=== PATIENT | male | born 1960 | race Caucasian/White ===

== ENCOUNTER → 2023-02-22 14:18 | Outpatient (BNVA) | payer OTHER, SELFPAY | PROVIDERS: PCP Student in an Organized Health Care Education/Training Program; Visit Provider Psychiatry & Neurology Neurology | DX: G43.709 Chronic migraine without aura, not intractable, without status migrainosus (principal) ==

== ENCOUNTER → 2023-03-03 14:02 | Outpatient (BNVA) | payer OTHER, SELFPAY | PROVIDERS: PCP Student in an Organized Health Care Education/Training Program; Visit Provider Nurse Practitioner Family | DX: G43.709 Chronic migraine without aura, not intractable, without status migrainosus (principal); G47.33 Obstructive sleep apnea (adult) (pediatric); Z99.89 Dependence on other enabling machines and devices ==

== ENCOUNTER 2023-03-20 12:01 | Outpatient (REF) | payer OTHER, SELFPAY ==
--- NOTE | ~2023-03-20 | MR_ITS ---
MRI OF THE BRAIN WITHOUT IV CONTRAST INDICATION: Headache. COMPARISON: None available. TECHNIQUE: Multiplanar multisequence MR imaging of the brain was obtained without IV contrast. FINDINGS: There is no hydrocephalus, extra-axial surface collection, or herniation. The major flow voids at the skull base are preserved. There is no acute infarct on diffusion-weighted imaging. There is no intracranial hemorrhage on the gradient recalled echo acquisition. The midline structures are normal. The cerebellar tonsils are normally positioned. The cerebellum and brainstem are normal. The craniocervical junction is normal. Osseous marrow signal intensity is homogenous. The visualized soft tissues are unremarkable. MR/MR head/brain wo con IMPRESSION: Unremarkable noncontrast MRI of the brain.
== END 2023-03-20 12:02 | disposition home or self-care (01) ==
LOC: HO.MRI 12:01
PROVIDERS: PCP Student in an Organized Health Care Education/Training Program; Visit Provider Nurse Practitioner Family
DX: R51.9 Headache, unspecified (principal)
CPT/HCPCS: 70551

== ENCOUNTER 2023-04-03 16:32 | Outpatient (REF) | payer OTHER, SELFPAY ==
--- NOTE | ~2023-04-03 | XR_ITS ---
EXAMINATION: XR CERVICAL SPINE CLINICAL INFORMATION: Pain COMPARISON: None available. TECHNIQUE: 7 views of the cervical spine, inclusive of flexion and extension and bilateral oblique views, were obtained. FINDINGS: Bone alignment is normal. No fracture or dislocation. Degenerative spondylosis and degenerative disc disease at C5-C6 and C6-C7. Mild degenerative spondylosis at C4-C5. No instability on flexion-extension views. Right neuroforaminal narrowing from bony osteophyte at C3-C4 C5-C6 and C6-C7. Left neuroforaminal narrowing from bony osteophyte from C3-C4 to C6-C7. Prevertebral soft tissues are normal. XR/XR cervical spine min 6V IMPRESSION: Degenerative changes.
== END 2023-04-03 16:33 | disposition home or self-care (01) ==
LOC: HO.XRAY 16:32
PROVIDERS: Visit Provider Nurse Practitioner Family
DX: M54.2 Cervicalgia (principal)
CPT/HCPCS: 72052

== ENCOUNTER 2023-05-01 15:26 | Emergency (ER) | payer OTHER, SELFPAY ==
[2023-05-01 15:34] VITALS: BP 117/98; PULSE 100; RESP 18; TEMP 36.7; O2SAT 97; BMI 26.6
--- NOTE | 2023-05-01 15:44 | ED.GENADULT ---
HPI - General Adult General Chief complaint: Dyspnea Stated complaint: sent from urgent care ?embolism ,sob Time Seen by Provider: 05/01/23 21:17 Source: patient Mode of arrival: ambulatory Limitations: no limitations History of Present Illness HPI narrative: Patient comes to the emergency room from urgent care. Patient states that he recently traveled back from [facility], complaining of cough, chest pain, shortness of breath. In urgent care he was urged to come to the emergency room to rule out pulmonary embolism. Patient denies fever chills . Also, patient states that he has been having a migraine headache for 60 days. Patient has a migraine specialist, has been seen multiple times at [facility], it is prescribed diazepam p.r.n. headaches. Patient requesting 1 dose for severe headache that got worse with the coughing. Related Data Home Medications Medication Instructions Recorded Confirmed metformin 500 mg tablet,extended 2,000 mg PO BID 02/22/23 03/03/23 release 24 hr sumatriptan succinate 100 mg tablet 100 mg PO migraine 02/22/23 03/03/23 Previous Rx's Medication Instructions Recorded magnesium oxide 400 mg PO BEDTIME #30 caps 02/22/23 riboflavin (vitamin B2) 400 mg 400 mg PO QAM #30 tabs 02/22/23 tablet prednisone 20 mg tablet 60 mg PO DAILY 5 days #15 tabs 03/10/23 sumatriptan succinate 3 mg/0.5 mL 3 mg (0.5 mL) subcut Q1H PRN 03/22/23 subcutaneous pen injector migraine headache 28 days #5 mL (Zembrace Symtouch) galcanezumab-gnlm 120 mg/mL 120 mg subcut ONCE 30 days #1 mL 03/29/23 subcutaneous pen injector (Emgality Pen) sumatriptan succinate 6 mg/0.5 mL 6 mg (0.5 mL) subcut ONCE PRN 03/29/23 subcutaneous pen injector migraine headache 30 days #6 mL onabotulinumtoxinA 200 unit 200 unit IM ONCE 12 weeks #1 ea 04/07/23 solution for injection (Botox) diazepam 5 mg tablet 5 mg PO BID PRN anxiety 30 days 04/10/23 #60 tabs metoclopramide HCl 5 mg tablet 5 mg PO TID 15 days #45 tabs 04/10/23 (Reglan) topiramate 50 mg tablet 100 mg PO BID 30 days #120 tabs 04/10/23 benzonatate 100 mg capsule 100 mg PO TID PRN cough #20 caps 05/02/23 codeine 6.3 mg-guaifenesin 100 10 ml PO Q6H PRN cough #473 mL 05/02/23 mg/5 mL oral liquid Allergies Allergy/AdvReac Type Severity Reaction Status Date / Time No Known Allergies Allergy Verified 03/03/23 14:13 Review of Systems Review of Systems: Constitutional : No Weight loss, No Fever, No Chills, No Night Sweats, No Fatigue, No Malaise ENT/Mouth : No Hearing loss, No Ear Pain, No Nasal Congestion, No Sinus Pain, No Hoarseness, No sore throat, No Rhinorrhea, No Swallowing Difficulty Eyes: No Eye Pain, No Swelling, No Redness, No Foreign Body, No Discharge, No Vision Changes Cardiovascular : No Chest Pain, No SOB, No Dyspnea on Exertion, No Orthopnea, No Edema, No Palpitations Respiratory : Min of cough, no sputum production, no wheezing, complaining of shortness of breath Gastrointestinal : No Nausea, No Vomiting, No Diarrhea, No Constipation, No abdominal Pain, No Hematochezia, No Melena Genitourinary : no irregular bleeding, No Dysuria, No Urinary Frequency, No Hematuria, No Urinary Incontinence, No Urgency, No Flank Pain, No Urinary Flow Changes, No Hesitancy Musculoskeletal : No joint pain, No Myalgias, No Joint Swelling Skin : No Skin Lesions, No rash Neuro : No Weakness, No Numbness, No Paresthesias, No Loss of Consciousness, No Dizziness, complaining of chronic migraine Headache Psych : No Anxiety/Panic, No Depression, No SI/HI/AH/VH, No Social Issues, Heme/Lymph: No Bruising, No Bleeding,No Lymphadenopathy Endocrine : No Polyuria, No Polydipsia, No Temperature Intolerance [facility] Past Medical History Medical History Chronic migraine without aura Diabetes Headache Irritable bowel syndrome MICHEAL on CPAP Family History Family History Father Dementia Diabetes History of heart attack Mother Stomach cancer Social History Social History Alcohol intake: current Alcohol intake frequency: does not drink Patient Tobacco Use Status: Former Tobacco user Smoked in Last 30 Days: No Use of substances other than those prescribed or required for medical reasons: No Advance Directives: No Advance Directives Information Provided: Yes Physical Exam ED Vital Signs: Vital Signs - 24 hr 05/01/23 15:34 05/01/23 20:38 05/01/23 22:19 Temperature 98.0 F 99.4 F 98.8 F Pulse Rate 100 104 H 107 H Respiratory Rate 18 18 Blood Pressure 117/98 H 132/96 H 130/94 H Pulse Oximetry 97 96 98 Oxygen Delivery Method Room Air Room Air Room Air 05/02/23 00:02 Temperature 99.4 F Pulse Rate 104 H Respiratory Rate 18 Blood Pressure 126/84 Pulse Oximetry 98 Oxygen Delivery Method Room Air BMI result Body Mass Index 26.6 Const Other: Appearance: Alert. Oriented X3. No acute distress. Looks uncomfortable Eyes: Pupils equal, round and reactive to light. ENT: Pharynx normal. Neck: Normal inspection. Neck supple. No lymph nodes noted. No crepitus CVS: Normal heart rate and rhythm. Pulses normal. Normal S1 and S2 Respiratory: No respiratory distress. Breath sounds normal. No Wheezing. No rales Abdomen: Soft and nontender. No rigidity. No distention. Skin: Skin warm and dry. Normal skin color. Normal skin turgor. Extremities: No lower extremity edema. No Lacerations. No Rash Neuro: Oriented X 3. No motor deficit. No sensory deficit. Moving all extremities. No slurred speech. CN 2 through 12 grossly intact Psych: calm, cooperative, normal affect Course Course Course Narrative: RME: 62 yold male presents to the Ed for COughing green phelgum since traveling from [facility]. patient states no pleurisy, coughing up blood, leg swelling, or calf pain. Sent from [facility] to rule out PE. labs, Ches xray, D dimer ordered Medications Administered Discontinued Medications Generic Name Dose Route Start Last Admin Trade Name Freq PRN Reason Stop Dose Admin Benzonatate 100 mg 05/02/23 00:42 05/02/23 00:47 Benzonatate 100 Mg Capsule PO 05/02/23 00:43 100 mg ONCE ONE Administration Diazepam 5 mg 05/01/23 21:26 05/01/23 22:16 Diazepam 10 Mg/2 Ml Cartridge IVPUSH 05/01/23 21:27 5 mg STAT STA Administration Iohexol 65 ml 05/02/23 00:11 05/02/23 00:12 Iohexol 350 Mg/Ml 100 Ml Infus..Btl IV 05/02/23 00:12 65 ml ONCE ONE Administration Medical Decision Making Medical Decision Making [facility] Narrative: -my interpretation of laboratory work, patient's white blood cell count is elevated, D-dimer is positive. Admission has been considered -my interpretation of chest x-ray: No infiltrates -patient morning for a CT scan to rule out pulmonary embolism. -patient was given a dose of diazepam 5 mg for headache -interpretation of CTA of the lungs: No obvious DVT, no pneumonia -patient was given Tessalon Perles. -discussed with the patient that the coughing may last up to 8 weeks Differential Diagnosis Differential Diagnoses: The differential diagnosis associated with the presentation includes (Pulmonary embolism, pneumonia, viral bronchitis, bacterial bronchitis) Admission/Observation Consideration of admission/observation: Escalation of care including admission/observation considered Lab Data [facility] Lab Attestation statement: I reviewed the patient's lab results. 05/01/23 16:15 05/01/23 16:15 Labs: Lab Results 05/01/23 05/01/23 05/01/23 Range/Units 16:15 16:15 16:15 WBC 11.0 H (4.8-10.8) X10*3/uL RBC 4.59 L (4.60-5.80) X10*6/uL Hgb 13.0 L (14.0-18.0) g/dl Hct 38.6 L (42.0-52.0) % MCV 84.1 (80.0-98.0) fL MCH 28.3 (27.0-33.0) pg MCHC 33.7 (31.0-36.0) g/dl RDW 14.1 (11.0-16.0) % Plt Count 289 (160-400) X10*3/uL MPV 9.8 (9.4-12.4) fL Immature Gran % (Auto) 0.7 H (0.0-0.4) % Neut % (Auto) 68.0 (45-73) % Lymph % (Auto) 22.3 (20-40) % [place] % (Auto) 6.2 (2-11) % Eos % (Auto) 2.4 (0-4) % Baso % (Auto) 0.4 (0-2) % Lymph # (Auto) 2.5 (1.2-4.9) X10*3/uL [place] # (Auto) 0.7 (0.1-1.2) X10*3/uL Eos # (Auto) 0.3 (0.0-0.4) X10*3/uL Baso # (Auto) 0.0 (0.0-0.2) X10*3/uL Abs Immat Gran (auto) 0.08 H (0.00-0.03) X10*3/uL Absolute Neuts (auto) 7.5 (2.0-8.3) x10*3/uL Absolute Nucleated RBC 0.000 (0.0-0.012) X10*3/uL Nucleated RBC % (auto) 0.0 (0.0-0.2) /100WBC PT 11.9 (10.0-13.1) SEC INR 1.0 (0.9-1.1) APTT 36.1 (26.0-36.4) SEC D-Dimer High Sensitivty 157 NG/ML Sodium 142 (135-145) mmol/L Potassium 3.7 (3.3-5.1) mmol/L Chloride 113 H (96-108) mmol/L Carbon Dioxide 20 L (22-29) mmol/L Anion Gap 13 (12-20) BUN 19 H (9-16) mg/dL Creatinine 1.15 (0.5-1.4) mg/dL Estim Creat Clear Calc 67.4 Estimated GFR > 60 Random Glucose 133 H (60-115) mg/dL Calcium 9.8 (8.4-10.2) mg/dL Total Bilirubin 0.5 (0.0-1.0) mg/dL AST 21 (5-37) U/L ALT 27 (0-40) U/L Alkaline Phosphatase 58 (39-117) U/L Troponin I High Sens (<3.5-35.0) ng/L B-Natriuretic Peptide (<100) pg/mL Total Protein 7.4 (6.5-8.0) g/dL Albumin 4.2 (3.5-5.0) g/dL COVID-19 (VALERIO) (Negative) COVID-19 Clin Com Influenza Type A (RINA) (Negative) Influenza Type B (RINA) (Negative) Influenza A & B Note 05/01/23 05/01/23 05/01/23 Range/Units 16:15 16:15 16:15 WBC (4.8-10.8) X10*3/uL RBC (4.60-5.80) X10*6/uL Hgb (14.0-18.0) g/dl Hct (42.0-52.0) % MCV (80.0-98.0) fL MCH (27.0-33.0) pg MCHC (31.0-36.0) g/dl RDW (11.0-16.0) % Plt Count (160-400) X10*3/uL MPV (9.4-12.4) fL Immature Gran % (Auto) (0.0-0.4) % Neut % (Auto) (45-73) % Lymph % (Auto) (20-40) % Dimmit % (Auto) (2-11) % Eos % (Auto) (0-4) % Baso % (Auto) (0-2) % Lymph # (Auto) (1.2-4.9) X10*3/uL Dimmit # (Auto) (0.1-1.2) X10*3/uL Eos # (Auto) (0.0-0.4) X10*3/uL Baso # (Auto) (0.0-0.2) X10*3/uL Abs Immat Gran (auto) (0.00-0.03) X10*3/uL Absolute Neuts (auto) (2.0-8.3) x10*3/uL Absolute Nucleated RBC (0.0-0.012) X10*3/uL Nucleated RBC % (auto) (0.0-0.2) /100WBC PT (10.0-13.1) SEC INR (0.9-1.1) APTT (26.0-36.4) SEC D-Dimer High Sensitivty NG/ML Sodium (135-145) mmol/L Potassium (3.3-5.1) mmol/L Chloride (96-108) mmol/L Carbon Dioxide (22-29) mmol/L Anion Gap (12-20) BUN (9-16) mg/dL Creatinine (0.5-1.4) mg/dL Estim Creat Clear Calc Estimated GFR Random Glucose (60-115) mg/dL Calcium (8.4-10.2) mg/dL Total Bilirubin (0.0-1.0) mg/dL AST (5-37) U/L ALT (0-40) U/L Alkaline Phosphatase (39-117) U/L Troponin I High Sens < 2.7 (<3.5-35.0) ng/L B-Natriuretic Peptide < 10 (<100) pg/mL Total Protein (6.5-8.0) g/dL Albumin (3.5-5.0) g/dL COVID-19 (VALERIO) (Negative) COVID-19 Clin Com Influenza Type A (RINA) Negative (Negative) Influenza Type B (RINA) Negative (Negative) Influenza A & B Note See Note 05/01/23 Range/Units 16:15 WBC (4.8-10.8) X10*3/uL RBC (4.60-5.80) X10*6/uL Hgb (14.0-18.0) g/dl Hct (42.0-52.0) % MCV (80.0-98.0) fL MCH (27.0-33.0) pg MCHC (31.0-36.0) g/dl RDW (11.0-16.0) % Plt Count (160-400) X10*3/uL MPV (9.4-12.4) fL Immature Gran % (Auto) (0.0-0.4) % Neut % (Auto) (45-73) % Lymph % (Auto) (20-40) % Dimmit % (Auto) (2-11) % Eos % (Auto) (0-4) % Baso % (Auto) (0-2) % Lymph # (Auto) (1.2-4.9) X10*3/uL Dimmit # (Auto) (0.1-1.2) X10*3/uL Eos # (Auto) (0.0-0.4) X10*3/uL Baso # (Auto) (0.0-0.2) X10*3/uL Abs Immat Gran (auto) (0.00-0.03) X10*3/uL Absolute Neuts (auto) (2.0-8.3) x10*3/uL Absolute Nucleated RBC (0.0-0.012) X10*3/uL Nucleated RBC % (auto) (0.0-0.2) /100WBC PT (10.0-13.1) SEC INR (0.9-1.1) APTT (26.0-36.4) SEC D-Dimer High Sensitivty NG/ML Sodium (135-145) mmol/L Potassium (3.3-5.1) mmol/L Chloride (96-108) mmol/L Carbon Dioxide (22-29) mmol/L Anion Gap (12-20) BUN (9-16) mg/dL Creatinine (0.5-1.4) mg/dL Estim Creat Clear Calc Estimated GFR Random Glucose (60-115) mg/dL Calcium (8.4-10.2) mg/dL Total Bilirubin (0.0-1.0) mg/dL AST (5-37) U/L ALT (0-40) U/L Alkaline Phosphatase (39-117) U/L Troponin I High Sens (<3.5-35.0) ng/L B-Natriuretic Peptide (<100) pg/mL Total Protein (6.5-8.0) g/dL Albumin (3.5-5.0) g/dL COVID-19 (VALERIO) Negative (Negative) COVID-19 Clin Com See Note Influenza Type A (RINA) (Negative) Influenza Type B (RINA) (Negative) Influenza A & B Note Radiology Impression Discussion of test interpretation with radiology: I have reviewed the radiologist's reading. Radiologist Impression: FINDINGS: No significant abnormality is noted involving the heart, lungs, mediastinum, bony thorax or soft tissues. XR/XR chest 1V IMPRESSION: No acute cardiopulmonary process FINDINGS: QUALITY OF STUDY/CONTRAST BOLUS: Suboptimal. The pulmonary arteries are the least well opacified vascular structure with better opacification of the aorta and pulmonary veins. In addition, there is marked motion artifact degrading detail. PULMONARY ARTERIES: No central or large segmental pulmonary emboli.? THORACIC AORTA: No aneurysm. LUNG: No focal consolidation, nodules or masses. PLEURA: No pleural effusion or pneumothorax. MEDIASTINUM: Normal heart size.? No pericardial effusion.? No hilar or mediastinal lymphadenopathy.? No evidence of septal bowing or right heart strain. CORONARY ARTERY CALCIFICATION: None visualized on this study. CHEST WALL/AXILLA: No axillary or internal mammary lymphadenopathy. OSSEOUS STRUCTURES: No acute or suspicious osseous abnormality.? UPPER ABDOMEN: The liver and spleen are probably enlarged. Hepatic steatosis is present.? No reflux of contrast into the hepatic veins to suggest elevated right heart pressures. CT/CT angio chest PE protocol IMPRESSION: Limited study but no large pulmonary emboli are seen. Probable enlarged fatty liver and splenomegaly. ? VTE: Limited but negative . Tests considered The following testing was considered but not selected: I considered doing a CT scan of the head given that the patient has had a migraine for 60 days. However, on 03/20/2023, patient already had this current migraine, an MRI of the brain was done which was unremarkable. Chronic Conditions Patient?s care impacted by: Other (Migraine) Discharge Plan Discharge Clinical Impression: Bronchitis Patient Disposition: Home, Self-Care Instructions: Acute Bronchitis (ED) Additional Instructions: Please follow-up with your primary care physician tomorrow. If you have any worsening or new symptoms, please return to the emergency room or call 911 Prescriptions: New codeine-guaifenesin 6.3-100 mg/5 mL liquid 10 ml PO Q6H PRN (Reason: cough) Qty: 473 0RF benzonatate 100 mg capsule 100 mg PO TID PRN (Reason: cough) Qty: 20 0RF No Action prednisone 20 mg tablet 60 mg PO DAILY 5 Days Qty: 15 0RF Rx Instructions: take in am w/ food Zembrace Symtouch 3 mg/0.5 mL pen injector 3 mg subcut Q1H PRN (Reason: migraine headache) 28 Days Qty: 5 3RF Rx Instructions: may repeat in an hour. do not exceed 4 doses per 24 hrs. Emgality Pen 120 mg/mL pen injector 120 mg subcut ONCE 30 Days Qty: 1 6RF sumatriptan succinate 6 mg/0.5 mL pen injector 6 mg subcut ONCE PRN (Reason: migraine headache) 30 Days Qty: 6 3RF Rx Instructions: MR in 1 hr (max 12mg/24 hr), Botox 200 unit recon soln 200 unit IM ONCE 84 Days Qty: 1 3RF Rx Instructions: inject 155 units IM across forehead, scalp, and neck diazepam 5 mg tablet 5 mg PO BID PRN (Reason: anxiety) 30 Days Qty: 60 0RF topiramate 50 mg tablet 100 mg PO BID 30 Days Qty: 120 3RF metoclopramide HCl [Reglan] 5 mg tablet 5 mg PO TID 15 Days Qty: 45 0RF Rx Instructions: Can take with Benadryl 25 mg Take for nausea, vomiting or migraine sumatriptan succinate 100 mg tablet 100 mg PO metformin 500 mg tablet extended release 24 hr 2,000 mg PO BID magnesium oxide 400 mg magnesium capsule 400 mg PO BEDTIME Qty: 30 3RF riboflavin (vitamin B2) 400 mg tablet 400 mg PO QAM Qty: 30 6RF Interventions: ED Discharge Assessment Last Done: 05/02/23 01:08 Discharge Date/Time: 05/02/23 01:09
[2023-05-01 16:44] LABS: Alanine Aminotransferase 27 U/L (0-40); Albumin Level 4.2 g/dL (3.5-5.0); Alkaline Phosphatase 58 U/L (39-117); Anion Gap 13 (12-20); Aspartate Amino Transferase 21 U/L (5-37); Bilirubin Total 0.5 mg/dL (0.0-1.0); Blood Urea Nitrogen 19 mg/dL (9-16); Calcium 9.8 mg/dL (8.4-10.2); Carbon Dioxide 20 mmol/L (22-29); Chloride 113 mmol/L (96-108); Creatinine Clr Calc Pharmacy 67.4; Estimated Glomerular Filt Rate > 60; Glucose Random 133 mg/dL (60-115); Potassium 3.7 mmol/L (3.3-5.1); Sodium 142 mmol/L (135-145); Total Protein 7.4 g/dL (6.5-8.0)
[2023-05-01 20:38] VITALS: BP 132/96; PULSE 104; TEMP 37.4; O2SAT 96
--- NOTE | 2023-05-01 20:45 | PC.NURSE ---
Pt aox4 sitting up right at the bedside. Breaths are even regular and unlabored. Cough present. Pt reports cough with green sputum and migraine headache, 08/08. VSS. Pending physician my. Pt aware of plan of care.
[2023-05-01 22:19] VITALS: BP 130/94; PULSE 107; RESP 18; TEMP 37.1; O2SAT 98
[2023-05-02 00:02] VITALS: BP 126/84; PULSE 104; RESP 18; TEMP 37.4; O2SAT 98
--- NOTE | 2023-05-02 00:03 | MHC.EDTECH ---
This tech assumed care of pt at 2300, vitals taken and patient is resting awaiting a CT scan at this time. Call redding within reach
== END 2023-05-02 01:09 | disposition home or self-care (01) ==
PROVIDERS: Physician Assistant; Emergency Provider Emergency Medicine
DX: J40 Bronchitis, not specified as acute or chronic (principal); R06.02 Shortness of breath; Z20.822 Contact with and (suspected) exposure to COVID-19; E11.9 Type 2 diabetes mellitus without complications; Z87.891 Personal history of nicotine dependence; Z79.899 Other long term (current) drug therapy; Z79.84 Long term (current) use of oral hypoglycemic drugs
CPT/HCPCS: 36415; 71045; 71275; 80053; 83880; 84484; 85025; 85379; 85610; 85730; 87502; 87635; 96374; 99284; J3360; Q9967

== ENCOUNTER → 2023-05-05 15:03 | Outpatient (BNVA) | payer OTHER, SELFPAY | PROVIDERS: Visit Provider Psychiatry & Neurology Neurology | DX: G43.709 Chronic migraine without aura, not intractable, without status migrainosus (principal); F41.9 Anxiety disorder, unspecified | CPT/HCPCS: 64615; J0585 ==

== ENCOUNTER 2023-05-29 14:26 | Outpatient (AMB) | payer OTHER, SELFPAY ==
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
[2023-05-29 14:31] VITALS: BP 123/82; PULSE 99; O2SAT 100; BMI 26.2
== END 2023-05-29 15:24 | disposition home or self-care (01) ==
PROVIDERS: Visit Provider Internal Medicine
DX: G43.709 Chronic migraine without aura, not intractable, without status migrainosus (principal)
CPT/HCPCS: 64405; 64450; 99204

== ENCOUNTER → 2023-05-29 14:26 | Outpatient (BNVA) | payer OTHER, SELFPAY | PROVIDERS: Visit Provider Internal Medicine | DX: G43.719 Chronic migraine without aura, intractable, without status migrainosus (principal); E11.9 Type 2 diabetes mellitus without complications; G47.33 Obstructive sleep apnea (adult) (pediatric); Z99.89 Dependence on other enabling machines and devices | CPT/HCPCS: 64405; 64450; J2795 ==

== ENCOUNTER 2023-06-23 07:22 | Outpatient (REF) | payer OTHER, SELFPAY ==
--- NOTE | ~2023-06-23 | MR_ITS ---
EXAMINATION: MR ANGIOGRAPHY BRAIN WITHOUT CONTRAST CLINICAL INFORMATION: Headache. COMPARISON: Brain MRI 03/20/2023. TECHNIQUE: A three-dimensional [id number]-[id number] MR angiogram of the head was performed without contrast. 3D images were processed on an independent workstation under concurrent supervision. Arterial stenoses are measured in accordance with NASCET criteria or similar method if applicable. FINDINGS: Intracranial internal carotid arteries are normal. The intradural vertebral artery segments and basilar artery are normal. Anterior, middle, and posterior cerebral complexes are normal. No intracranial large vessel occlusion. No identifiable aneurysm or high flow vascular lesion. MR/MR angio head wo con IMPRESSION: Normal MR angiogram of the head.
== END 2023-06-23 07:23 | disposition home or self-care (01) ==
LOC: HO.MRI 07:22
PROVIDERS: Visit Provider Nurse Practitioner Family
DX: R51.9 Headache, unspecified (principal); E11.9 Type 2 diabetes mellitus without complications
CPT/HCPCS: 70544

== ENCOUNTER 2023-08-09 14:58 | Outpatient (AMB) | payer OTHER, SELFPAY ==
--- NOTE | 2023-08-09 15:10 | A.OFFVIS_ITS ---
Intake Intake Visit Reasons: BOTOX-lvm Intake Note: Pt presents to office for Botox injection. I asked pt if he was still interested in using the Emgality as we would need to submit a PA so there is no lapse in his current treatment and he replied I'll get back to you on that. I have another doctor working on getting that approved, if they don't do it, I'll let you guys know so you can submit the request through here . Allergies No Known Allergies Allergy (Verified 08/09/23 15:11) Medication List - Last Reconciled 08/09/23 by Esperanza Ruiz MD [id number]-nrar 50-325-40 mg 1 tab PO Q4H PRN citalopram 10 mg PO DAILY galcanezumab-gnlm (Emgality Pen) 120 mg subcut ONCE 30 days magnesium oxide 400 mg PO BEDTIME 30 days metformin ER 2,000 mg PO BID metoclopramide HCl (Reglan) 5 mg PO TID 15 days onabotulinumtoxinA (Botox) 200 units IM ONCE 12 weeks propranolol ER 60 mg PO DAILY riboflavin (vitamin B2) 400 mg PO QAM rizatriptan 5 - 10 mg (0.5 - 1 x 10 mg) PO Q2H PRN 14 days sumatriptan succinate 100 mg PO sumatriptan succinate (Zembrace Symtouch) 3 mg (0.5 mL) subcut Q1H PRN 28 days sumatriptan succinate 6 mg (0.5 mL) subcut ONCE PRN 30 days HPI HPI Comments History of Present Illness Details ? 62y/o male comes for treatment of migraines with botox.He reports decrease in intensity of headaches.He was seen at the [facility] at [place] and [facility] and is following up with them . He wanst to continue botox here. ??? Most frequent reported adverse reactions following injection of botox for chronic migraine include neck pain (9%), headache(5%), eyelid ptosis(4%), migraine(4%), muscular weakness(4%), musculuskeletal stiffness(4%), bronchitis(3%), injection site pain (3%), musculoskeletal pain(3%), myalgia(3%), facial paresis(2%), HTN(2%) and muscle spasms(2%) were discussed in detail. ??? Botulinum toxin typeA 200units Lot no [id number] expiration Nov 2025 was diluted with 4 cc of normal saline . ??? Muscles injected- ??? Frontalis 4 sites ??? Procerus 1 site ??? Cashier Assistant- 2 sites ??? Temporalis- 8 sites ??? Occipitalis- 6 sites ??? Cervical paraspinals- 4 sites ??? Trapezius- 6 sites- 10 units each ??? 5 units each in 31 site ??? Total use- 185units ??? Discarded-15units [facility] Medical History Anxiety Irritable bowel syndrome Chronic migraine without aura MICHEAL on CPAP Headache Diabetes Family History Father Dementia Diabetes History of heart attack Mother Stomach cancer Social History Alcohol intake: current Alcohol intake frequency: does not drink Patient Tobacco Use Status: Former Tobacco user Physical Exam Const General: cooperative and no acute distress Orientation/consciousness: patient oriented x3 HEENT Head: Yes normocephalic Resp Effort & Inspection: normal respiratory effort and able to speak in complete sentences Neuro Other: photophobic General: patient oriented x3, gait normal and CN's II-XI intact bilaterally Cognition (Neuro): normal cognition Motor exam (neuro): 5/5 motor strength present throughout Psych Appearance: grossly normal Mental Status: mental status grossly normal Speech and movement: Normal speech and movement present Affect: Anxious affect present and Depressed mood present Attitude: cooperative Thought process: Normal thought process present Office Procedures Botulinum toxin Injection 80228 - Migraine Procedure code (CPT) selection complete Office Meds onabotulinumtoxinA 200 unit solution for injection Performing Provider: Esperanza Ruiz MD [place] [facility] [place] [facility] Administered by: Esperanza Ruiz MD on 08/09/23 15:39 Dose Route Admin Location Dispensed Lot Number Expiration Date [facility] [place] Adult Protective Caseworker 185 unit subcut 200 units [id number] 11/30/25 8899-5001-33 ALLERGAN/BOTOX Comments: see HPI Assessment & Plan Assessment & Plan (1) Chronic migraine without aura: Code(s): G43.709 - Chronic migraine without aura, not intractable, without status migrainosus (2) Anxiety: Code(s): F41.9 - Anxiety disorder, unspecified Plan Patient tolerated the procedure well He will call with any side effects Orders: Orders AMB Botulinum toxin Injection Today G43.709 - Chronic migraine without aura, not intractable, without status migrainosus Coding Level of Care Code Est Pt Level 1 (59667) Diagnoses Chronic migraine without aura G43.709 Anxiety F41.9 CPT Codes Botox Injection - Botox 3: 17175 - Migraine ([id number])
== END 2023-08-09 15:34 | disposition home or self-care (01) ==
PROVIDERS: Visit Provider Psychiatry & Neurology Neurology
DX: G43.709 Chronic migraine without aura, not intractable, without status migrainosus (principal); F41.9 Anxiety disorder, unspecified
CPT/HCPCS: 64615

== ENCOUNTER → 2023-08-09 14:58 | Outpatient (BNVA) | payer OTHER, SELFPAY | PROVIDERS: Visit Provider Psychiatry & Neurology Neurology | DX: G43.709 Chronic migraine without aura, not intractable, without status migrainosus (principal); F41.9 Anxiety disorder, unspecified | CPT/HCPCS: 64615; 99211; J0585 ==

== ENCOUNTER 2023-11-13 07:51 | Outpatient (AMB) | payer BC, SELFPAY ==
--- NOTE | 2023-11-13 08:13 | MHC.OFFVIS ---
Intake Vital Signs 11/13/23 08:16 Height 5 ft 9 in Weight 186 lb 8 oz BMI 27.5 BP 110/80 Blood Pressure Location Lt brachial Position Sitting Respiration 16 Pulse 77 Pulse Source Pulse Oximeter Pulse Oximetry (%) 98 Oxygen Delivery Method Room Air Intake Visit Reasons: Botox - Confirmed Intake Note: Pt presents to the office for Botox injections Nuclear Supervising Operator Required: No Allergies No Known Allergies Allergy (Verified 11/13/23 08:14) Medication List - Last Reconciled 11/13/23 by Esperanza Ruiz MD [id number]-kqgmhyxkyzhjv-rvdp 50-325-40 mg 1 tab PO Q4H PRN citalopram 10 mg PO DAILY magnesium oxide 400 mg PO BEDTIME 30 days metformin ER 2,000 mg PO BID metoclopramide HCl (Reglan) 5 mg PO TID 15 days onabotulinumtoxinA (Botox) 200 units IM ONCE 12 weeks propranolol ER 60 mg PO DAILY riboflavin (vitamin B2) 400 mg PO QAM rizatriptan 5 - 10 mg (0.5 - 1 x 10 mg) PO Q2H PRN 14 days sumatriptan succinate 100 mg PO sumatriptan succinate 6 mg (0.5 mL) subcut ONCE PRN 30 days HPI HPI Comments History of Present Illness Details ? 63y/o male comes for treatment of migraines with botox.He reports decrease in intensity of headaches.He was seen at the [facility] at [facility] and [facility] and is following up with them . He wanst to continue botox here. How many migraine days prior to botox 30 How long do the migraines last 1-2 days Intensity of migraine 08/08 ER visits related to migraine multiple Effectiveness of botox from last two treatment(s) How many migraine days since receiving treatment:25-30 Change? in intensity of migraine?decreased Change in frequency of migraine?same Change in use of acute medication for migraine?decreased Change in quality of life?mildly improved ER visits related to migraine?none Have at least three months elapsed since last treatment (Last botox date - frequency of injections)08/09/23 ??? Most frequent reported adverse reactions following injection of botox for chronic migraine include neck pain (9%), headache(5%), eyelid ptosis(4%), migraine(4%), muscular weakness(4%), musculuskeletal stiffness(4%), bronchitis(3%), injection site pain (3%), musculoskeletal pain(3%), myalgia(3%), facial paresis(2%), HTN(2%) and muscle spasms(2%) were discussed in detail. ??? Botulinum toxin typeA 200units Lot no [id number] expiration February 2026 was diluted with 4 cc of normal saline . ??? Muscles injected- ??? Frontalis 4 sites ??? Procerus 1 site ??? Security System Installer- 2 sites ??? Temporalis- 8 sites ??? Occipitalis- 6 sites ??? Cervical paraspinals- 4 sites ??? Trapezius- 6 sites- 10 units each ??? 5 units each in 31 site ??? Total use- 185units ??? Discarded-15units [facility] Medical History Anxiety Irritable bowel syndrome Chronic migraine without aura MICHEAL on CPAP Headache Diabetes Family History Father Dementia Diabetes History of heart attack Mother Stomach cancer Social History Alcohol intake: current Alcohol intake frequency: does not drink Patient Tobacco Use Status: Former Tobacco user Physical Exam Vital Signs: Last Vital Signs Pulse 77 11/13/23 08:16 Resp 16 11/13/23 08:16 BP 110/80 11/13/23 08:16 Pulse Ox 98 11/13/23 08:16 Oxygen Delivery Method Room Air 11/13/23 08:16 BMI result Body Mass Index 27.5 Const General: cooperative and no acute distress Orientation/consciousness: patient oriented x3 HEENT Head: Yes normocephalic Resp Effort & Inspection: normal respiratory effort and able to speak in complete sentences Neuro Other: photophobic General: patient oriented x3, gait normal and CN's II-XI intact bilaterally Cognition (Neuro): normal cognition Motor exam (neuro): 5/5 motor strength present throughout Psych Appearance: grossly normal Mental Status: mental status grossly normal Speech and movement: Normal speech and movement present Affect: Anxious affect present and Depressed mood present Attitude: cooperative Thought process: Normal thought process present Office Procedures Botulinum toxin Injection 39139 - Migraine Procedure code (CPT) selection complete Office Meds onabotulinumtoxinA 200 unit solution for injection Performing Provider: Esperanza Ruiz MD [place] [facility] [place] [facility] Administered by: Esperanza Ruiz MD on 11/13/23 10:18 Dose Route Admin Location Dispensed Lot Number Expiration Date [facility] Impregnator Electrolytic Capacitors 185 unit IM 200 units [id number] 02/27/26 7436-0456-05 ALLERGAN/BOTOX Comments: see hpi Assessment & Plan Assessment & Plan (1) Chronic migraine without aura: Code(s): G43.709 - Chronic migraine without aura, not intractable, without status migrainosus (2) Anxiety: Code(s): F41.9 - Anxiety disorder, unspecified Plan Patient tolerated the procedure well He will call with any side effects Orders: Orders AMB Botulinum toxin Injection Today G43.709 - Chronic migraine without aura, not intractable, without status migrainosus Coding Level of Care Code Est Pt Level 1 (06159) Diagnoses Chronic migraine without aura G43.709 Anxiety F41.9 CPT Codes Botox Injection - Botox 3: 74741 - Migraine ([id number])
[2023-11-13 08:16] VITALS: BP 110/80; PULSE 77; RESP 16; O2SAT 98; BMI 27.5
== END 2023-11-13 08:37 | disposition home or self-care (01) ==
PROVIDERS: Visit Provider Psychiatry & Neurology Neurology
DX: G43.709 Chronic migraine without aura, not intractable, without status migrainosus (principal)
CPT/HCPCS: 64615

== ENCOUNTER → 2023-11-13 07:51 | Outpatient (BNVA) | payer BC, SELFPAY | PROVIDERS: Visit Provider Psychiatry & Neurology Neurology | DX: G43.709 Chronic migraine without aura, not intractable, without status migrainosus (principal); F41.9 Anxiety disorder, unspecified | CPT/HCPCS: 64615; 99211; J0585 ==

== ENCOUNTER 2024-05-29 16:22 | Outpatient (REF) | payer BC, SELFPAY ==
--- NOTE | ~2024-05-29 | MR_ITS ---
EXAMINATION: MR CERVICAL SPINE WITHOUT CONTRAST CLINICAL INFORMATION: New daily persistent headache COMPARISON: None TECHNIQUE: MRI of the cervical spine was obtained using routine sequences without contrast. FINDINGS: The craniocervical junction is intact. The cervical lordosis is preserved. Trace anterolisthesis at C3-C4 and C4-C5. Vertebral body heights are normal without acute compression fracture. No suspicious osseous lesion. Diffuse disc desiccation with mild C5-C6 and C6-C7 disc height loss and there is mild type II Modic endplate change. There are multilevel degenerative changes with level by level detail as follows: C2-C3: Fusion across the hypertrophic right greater than left facet arthrosis. No spinal canal or neural foraminal stenosis. C3-C4: Small central disc protrusion with bilateral uncovertebral joint hypertrophy, hypertrophic right and mild left facet arthrosis. No spinal canal stenosis. Moderate right without left neural foraminal stenosis. C4-C5: Bilateral uncovertebral spurring and left greater than right facet arthrosis. No spinal canal stenosis. Moderate to severe left and mild right neural foraminal stenosis. C5-C6: Disc osteophyte complex with bilateral uncovertebral joint hypertrophy and mild facet arthrosis. No spinal canal stenosis. Moderate to severe left and oars-lv-qlgutsig right neural foraminal stenosis. C6-C7: Disc osteophyte complex with bilateral uncovertebral joint hypertrophy and mild facet arthrosis. Mild spinal canal and moderate bilateral neural foraminal stenosis. C7-T1: Shallow left central disc protrusion. No spinal canal or neural foraminal stenosis. The cervical spinal cord is normal in signal and morphology. No epidural fluid collection, mass, or hematoma. No significant abnormalities of the paraspinal musculature. The flow voids of the major cervical vessels are maintained. The visualized intracranial structures are normal. No demonstrated abnormalities in the visualized neck. MR/MR cervical spine wo con IMPRESSION: Multilevel cervical spondylosis as described above with mild spinal canal stenosis at C6-C7. No cord compression or cord signal abnormality. Multilevel neural foraminal stenosis, worst and moderate to severe on the left at C4-C5 and C5-C6. Electronically signed by: Teresa Vasquez MD 06/20/2024 04:01 PM EDT
== END 2024-05-29 16:23 | disposition home or self-care (01) ==
LOC: HO.MRI 16:22
PROVIDERS: Visit Provider Internal Medicine
DX: G44.52 New daily persistent headache (NDPH) (principal); G43.719 Chronic migraine without aura, intractable, without status migrainosus
CPT/HCPCS: 72141

== ENCOUNTER 2024-08-14 09:29 | Outpatient (AMB) | payer BC, SELFPAY ==
--- NOTE | 2024-08-14 09:49 | A.OFFVIS_ITS ---
Vital Signs 08/14/24 09:51 Height 5 ft 9 in Weight 172 lb BMI 25.4 BP 115/82 Blood Pressure Location Lt brachial Position Sitting Respiration 16 Pulse 119 H Pulse Source Pulse Oximeter Pulse Oximetry (%) 97 Oxygen Delivery Method Room Air Intake Visit Reasons: Occipital Nerve Blocks Allergies No Known Allergies Allergy (Verified 08/14/24 09:53) Medication List - Last Reconciled 08/14/24 by Lily Cisneros LPN amantadine HCl 100 mg PO DAILY amitriptyline 10 mg PO BEDTIME gabapentin 300 mg PO TID glipizide 5 mg PO DAILY metformin ER 2,000 mg PO BID semaglutide 2 mg subcut QWEEK topiramate (Topamax) 50 mg PO BID venlafaxine ER (Effexor XR) 37.5 mg PO BEDTIME HPI HPI Occipital Nerve Blocks: Details: 62-year-old male presenting today for occipital nerve blocks. He reports not much improvement following occipital nerve block that was done 15 months ago. He states his headaches have been unchanged since last visit and reports he is struggling. He reports he slept for 19 hours for 3 days after he received a shot in March. He reports his pain has worsened after the injection. He has tried multiple medications for migraines without any benefit. He goes on a cruise every 6 months. He mentions he was seen at the [facility] which was not helpful. He was seen by Dr. Mohan, neurologist who referred him to a specialist for further management. He has been on Ozempic for diabetes and weight loss. He had lost about 15 pounds. He is planning to stop Ozempic. Denies any recent cough, cold, infection, fever or other significant changes in medical history since last office visit. [facility] Medical History Anxiety Irritable bowel syndrome Chronic migraine without aura MICHEAL on CPAP Headache Diabetes Family History Father Dementia Diabetes History of heart attack Mother Stomach cancer Social History Alcohol intake: current Alcohol intake frequency: does not drink Patient Tobacco Use Status: Former Tobacco user Physical Exam Vital Signs: Last Vital Signs Pulse 119 H 08/14/24 09:51 Resp 16 10/16/24 09:51 BP 115/82 08/14/24 09:51 Pulse Ox 97 08/14/24 09:51 Oxygen Delivery Method Room Air 08/14/24 09:51 BMI result Body Mass Index 25.4 General: Appears afebrile. Alert and oriented. Mood and affect appropriate. Follows and participates in conversation appropriately. Respiratory effort is unlabored. Able to transition from sit to stand unassisted. Ambulates with bilaterally normal heel strike and toe off. Office Procedures Nerve Block Details: Sherry-cranial nerve blocks After obtaining written consent, pre-procedure blood pressure and heart rate were stable and recorded in the nursing record. The patient was in the sitting position. The skin overlying the target pericranial nerves was prepped with alcohol. A 27 gauge 1.5 in needle was used. The needle was placed on the target nerves including supraorbital nerve, supratrochlear nerve, auriculotemporal nerve, lesser occipital nerve and greater occipital nerve bilaterally. Aspiration was negative for heme and synovial fluid. 3 ml of 0.5% ropivacaine was injected at occipital nerves and 1 ml of 0.5% ropivacaine was injected at the supraorbital and auriculotemporal nerves. The skin was cleansed and hemostasis was ensured. The patient tolerated the procedure well and no complications were encountered. Following the procedure the patient's vital signs were stable. The patient was discharged home in good condition with post-procedural instructions. Time Out: Immediately prior to the procedure, the following was verbally confirmed that there is a signed consent form and that the correct patient, planned procedure, site and side are consistent with documentation and that necessary equipment and/or blood products are available prior to the start of the case. Procedure code (CPT) selection complete Results Reviewed Results Reviewed: 03/20/23: MRI OF THE BRAIN WITHOUT IV CONTRAST FINDINGS: There is no hydrocephalus, extra-axial surface collection, or herniation. The major flow voids at the skull base are preserved. There is no acute infarct on diffusion-weighted imaging. There is no intracranial hemorrhage on the gradient recalled echo acquisition. The midline structures are normal. The cerebellar tonsils are normally positioned. The cerebellum and brainstem are normal. The craniocervical junction is normal. Osseous marrow signal intensity is homogenous. The visualized soft tissues are unremarkable. IMPRESSION: Unremarkable noncontrast MRI of the brain. 04/03/23: XR CERVICAL SPINE FINDINGS: Bone alignment is normal. No fracture or dislocation. Degenerative spondylosis and degenerative disc disease at C5-C6 and C6-C7. Mild degenerative spondylosis at C4-C5. No instability on flexion-extension views. Right neuroforaminal narrowing from bony osteophyte at C3-C4 C5-C6 and C6-C7. Left neuroforaminal narrowing from bony osteophyte from C3-C4 to C6-C7. Prevertebral soft tissues are normal. IMPRESSION: Degenerative changes. Assessment & Plan Assessment & Plan (1) Occipital neuralgia: Code(s): M54.81 - Occipital neuralgia Category: Medical Qualifiers: Laterality: bilateral Qualified Code(s): M54.81 - Occipital neuralgia Plan Patient is status post bilateral pericranial occipital NB. Patient tolerated procedure well and was discharged home in stable condition with discharge instructions. All questions were answered. Unfortunately, so far he has not had a lot of success with the local anesthetic nerve blocks that only give short-term relief. He is interested in moving forward with more longer-term management strategies for his symptoms secondary to occipital neuralgia. We will plan for trial of temporary occipital nerve stimulation with a sprint device, starting with the right side followed by the left side two months later. We will do this with ultrasound guidance. Request insurance authorization. Scribed for Dr. Cervantes by Jamal medical referral coordinator, on 08/14/2024. I, Dr. Cervantes, have personally reviewed and agree with the information entered by the scribe Coding Level of Care Code Est Pt Level 4 (17896) Diagnoses Bilateral occipital neuralgia M54.81 Laterality: bilateral
[2024-08-14 09:51] VITALS: BP 115/82; PULSE 119; RESP 16; O2SAT 97; BMI 25.4
== END 2024-08-14 10:17 | disposition home or self-care (01) ==
PROVIDERS: Visit Provider Internal Medicine
DX: M54.81 Occipital neuralgia (principal)
CPT/HCPCS: 99214

== ENCOUNTER → 2024-08-14 09:29 | Outpatient (BNVA) | payer BC, SELFPAY | PROVIDERS: Visit Provider Internal Medicine | DX: M54.81 Occipital neuralgia (principal) | CPT/HCPCS: 64400; 64405; 64450; J2003 ==

== ENCOUNTER 2024-08-30 10:13 | Outpatient (AMB) | payer BC, SELFPAY ==
--- NOTE | 2024-08-30 10:14 | MHC.OFFVIS ---
Intake Visit Reasons: Patient concerned/FU for nerve block Allergies No Known Allergies Allergy (Verified 09/02/24 10:01) [facility] HPI Patient concerned/FU for nerve block: Details: 63-year-old male who presents today via tele-visit for his concerns about procedure. He initiated his CPAP process with Michaela. His provider informed him that the trial of temporary occipital nerve stimulation with a sprint device will interfere with CPAP machine. He requested a nerve block today. He has longer numbness with bupivacaine and wants to revert to that. He will follow up on Monday for bupi injections. Past procedures 08/14/24: Sherry-cranial nerve blocks with ropivacaine: Short-term relief. 05/29/23: Greater and Lesser Occipital Nerve Block, Bilateral: No relief. [facility] Medical History Anxiety Irritable bowel syndrome Chronic migraine without aura MICHEAL on CPAP Headache Diabetes Family History Father Dementia Diabetes History of heart attack Mother Stomach cancer Social History Alcohol intake: current Alcohol intake frequency: does not drink Patient Tobacco Use Status: Former Tobacco user Review of Systems Const All systems reviewed & are unremarkable except as noted in HPI and below Physical Exam General: Appears afebrile. Alert and oriented. Mood and affect appropriate. Follows and participates in conversation appropriately. Respiratory effort is unlabored. Able to transition from sit to stand unassisted. Ambulates with bilaterally normal heel strike and toe off. Telehealth Telehealth Telehealth Platform: Telephone Location of provider rendering services: practice address Location of patient: address on file Patient Identification confirmed using: Name, : Yes Telehealth method: voice only Patient verbally consented to treatment: Yes Patient verbally consented to billing insurance company: Yes Patient informed of any privacy concerns related to visit: Yes Minutes spent on Phone/Video with Pt.: 12 Results Reviewed Results Reviewed: No imaging is available for review. Assessment & Plan Assessment & Plan (1) Occipital neuralgia: Code(s): M54.81 - Occipital neuralgia Category: Medical Qualifiers: Laterality: bilateral Qualified Code(s): M54.81 - Occipital neuralgia (2) Worsening headaches: Code(s): R51.9 - Headache, unspecified Category: Medical Plan He had questions about the upcoming nerve stimulation procedure, which I answered today. He wants to return to the clinic for repeat sherry-cranial nerve with bupivacaine. We will follow up on Monday for that, and thereafter we will plan for the placement of his occipital nerve stimulators. Scribed for Dr. Cervantes by Doe Munson, medical imaging technologist, on 08/30/2024. I, Dr. Cervantes, have personally reviewed and agree with the information entered by the scribe. Coding Level of Care Code Tele Est Pt Level 3 (93032) Diagnoses Bilateral occipital neuralgia M54.81 Laterality: bilateral Worsening headaches R51.9
--- OUTSIDE RECORDS SUMMARY | 2024-08-30 10:26 | XMS_ITS | Continuity of Care Document ---
Author Organization [facility] ter Address [address] [place] [id number]- Care Team Providers Care Main Entree Cook And Cashier Name Role Phone Kim LAND, Wong Primary Care Physician Encounter [facility] Date(s): 08/03/21 - 09/12/[address] [address] Attending Physician: Charles Robles MD, I Admitting Physician: Charles Robles MD, I
--- OUTSIDE RECORDS SUMMARY | 2024-08-30 10:26 | XMS_ITS | Continuity of Care Document ---
Author Organization [facility] ter Address [address] [place] [id number]- Care Team Providers Care Director Retail Brand Development Name Role Phone Wong Alvarez MD Primary Care Physician Encounter [facility] Date(s): 01/09/20 - 02/14/[address] [address] [place] Attending Physician: Wong Alvarez MD Admitting Physician: Wong Alvarez MD Referring Physician: Wong Alvarez MD
== END 2024-08-30 10:22 | disposition home or self-care (01) ==
LOC: HO.PMC 10:13
PROVIDERS: Visit Provider Internal Medicine
DX: M54.81 Occipital neuralgia (principal); R51.9 Headache, unspecified
CPT/HCPCS: 99442

== ENCOUNTER → 2024-08-30 10:13 | Outpatient (BNVA) | payer BC, SELFPAY | PROVIDERS: Visit Provider Internal Medicine ==

== ENCOUNTER 2024-09-02 09:55 | Outpatient (AMB) | payer BC, SELFPAY ==
--- NOTE | 2024-09-02 09:58 | MHC.OFFVIS ---
Vital Signs 09/02/24 10:01 Height 5 ft 9 in Weight 167 lb BMI 24.7 BP 110/72 Blood Pressure Location Lt brachial Position Sitting Respiration 14 Pulse 97 Pulse Source Pulse Oximeter Pulse Oximetry (%) 98 Oxygen Delivery Method Room Air Intake Visit Reasons: pericranial nerve blocks Allergies No Known Allergies Allergy (Verified 09/02/24 10:01) Medication List - Last Reconciled 09/02/24 by Lily Cisneros LPN amantadine HCl 100 mg PO DAILY amitriptyline 10 mg PO BEDTIME gabapentin 300 mg PO TID metformin ER 2,000 mg PO BID semaglutide 2 mg subcut QWEEK topiramate (Topamax) 50 mg PO BID venlafaxine ER (Effexor XR) 37.5 mg PO BEDTIME HPI HPI pericranial nerve blocks: Details: 63-year-old male who presents today to the office for pericranial nerve block. Denies any recent cough, cold, infection, fever or other significant changes in medical history since last office visit.? He inquired about other option today including temporary peripheral nerve stimulator. All questions were answered. Past procedures 08/14/24: Sherry-cranial nerve blocks: Short-term relief. 05/29/23: Greater and Lesser Occipital Nerve Block, Bilateral: % relief. [facility] Medical History Anxiety Irritable bowel syndrome Chronic migraine without aura MICHEAL on CPAP Headache Diabetes Family History Father Dementia Diabetes History of heart attack Mother Stomach cancer Social History Alcohol intake: current Alcohol intake frequency: does not drink Patient Tobacco Use Status: Former Tobacco user Review of Systems Const All systems reviewed & are unremarkable except as noted in HPI and below Physical Exam Vital Signs: Last Vital Signs Pulse 97 09/02/24 10:01 Resp 14 09/02/24 10:01 BP 110/72 09/02/24 10:01 Pulse Ox 98 09/02/24 10:01 Oxygen Delivery Method Room Air 09/02/24 10:01 BMI result Body Mass Index 24.7 General: Appears afebrile. Alert and oriented. Mood and affect appropriate. Follows and participates in conversation appropriately. Respiratory effort is unlabored. Able to transition from sit to stand unassisted. Ambulates with bilaterally normal heel strike and toe off. Office Procedures Nerve Block Details: Sherry-cranial nerve blocks After obtaining written consent, pre-procedure blood pressure and heart rate were stable and recorded in the nursing record. The patient was in the sitting position. The skin overlying the target pericranial nerves was prepped with alcohol. A 27 gauge 1.5 in needle was used. The needle was placed on the target nerves including supraorbital nerve, supratrochlear nerve, auriculotemporal nerve, lesser occipital nerve and greater occipital nerve bilaterally. Aspiration was negative for heme and synovial fluid. 10 mL of 0.25% bupivacaine was injected at occipital nerves, supraorbital, and auriculotemporal nerves. The skin was cleansed and hemostasis was ensured. The patient tolerated the procedure well and no complications were encountered. Following the procedure the patient's vital signs were stable. The patient was discharged home in good condition with post-procedural instructions. Time Out: Immediately prior to the procedure, the following was verbally confirmed that there is a signed consent form and that the correct patient, planned procedure, site and side are consistent with documentation and that necessary equipment and/or blood products are available prior to the start of the case. Procedure code (CPT) selection complete Results Reviewed Results Reviewed: No imaging is available for review. Assessment & Plan Assessment & Plan (1) Occipital neuralgia: Code(s): M54.81 - Occipital neuralgia Category: Medical Qualifiers: Laterality: bilateral Qualified Code(s): M54.81 - Occipital neuralgia Plan Patient is status post pericranial nerve blocks with bupivacaine. Patient tolerated procedure well and was discharged home in stable condition with discharge instructions.? All questions were answered. We will plan to proceed with bilateral temporary occipital nerve stimulator placement, each side two weeks apart. Patient is on board with the plan. Scribed for Dr. Cervantes by Doe Munson medical review specialist, on 09/02/2024. I, Dr. Cervantes, have personally reviewed and agree with the information entered by the scribe. Coding Level of Care Code Est Pt Level 3 (44098) Diagnoses Bilateral occipital neuralgia M54.81 Laterality: bilateral
[2024-09-02 10:01] VITALS: BP 110/72; PULSE 97; RESP 14; O2SAT 98; BMI 24.7
== END 2024-09-02 10:39 | disposition home or self-care (01) ==
LOC: HO.PMC 09:55
PROVIDERS: Visit Provider Internal Medicine
DX: M54.81 Occipital neuralgia (principal)
CPT/HCPCS: 99213

== ENCOUNTER → 2024-09-02 09:55 | Outpatient (BNVA) | payer BC, SELFPAY | PROVIDERS: Visit Provider Internal Medicine | DX: M54.81 Occipital neuralgia (principal) | CPT/HCPCS: 64400; 64405; 64450; J0665 ==

== ENCOUNTER 2024-09-19 08:06 | Outpatient (REF) | payer BC, SELFPAY | END 2024-09-19 08:07 | disposition home or self-care (01) | LOC: CF 08:06 | PROVIDERS: Visit Provider Internal Medicine | DX: M54.81 Occipital neuralgia (principal) | CPT/HCPCS: 64555; C1778; J2003 ==

== ENCOUNTER 2024-09-19 12:46 | Outpatient (AMB) | payer BC, SELFPAY ==
--- NOTE | 2024-09-19 12:54 | A.OFFVIS_ITS ---
Vital Signs 09/19/24 12:55 09/19/24 13:57 BP 97/65 130/79 Blood Pressure Location Lt brachial Rt brachial Position Sitting Pulse 88 79 Pulse Source Pulse Oximeter Pulse Oximeter Pulse Oximetry (%) 98 99 Oxygen Delivery Method Room Air Room Air Intake Visit Reasons: Left occipital Sprint Allergies No Known Allergies Allergy (Verified 09/23/24 10:03) HPI HPI Left occipital Sprint: Details: Patient presents for scheduled procedure. Denies any recent cough, cold, infection, fever or other significant changes in medical history since last office visit. [facility] Medical History Anxiety Irritable bowel syndrome Chronic migraine without aura MICHEAL on CPAP Headache Diabetes Family History Father Dementia Diabetes History of heart attack Mother Stomach cancer Social History Alcohol intake: current Alcohol intake frequency: does not drink Patient Tobacco Use Status: Former Tobacco user Physical Exam Vital Signs: Last Vital Signs Pulse 79 09/19/24 13:57 BP 130/79 09/19/24 13:57 Pulse Ox 99 09/19/24 13:57 Oxygen Delivery Method Room Air 09/19/24 13:57 Office Procedures Details: Occipital Nerve Stimulation Lead Placement, SPR (Sprint) System, Left, ultrasound-guided ? After the risks, benefits and alternatives were discussed with the patient and informed consent was obtained, patient was placed in the prone position and padded to foster comfort. The skin overlying the cervical spine was prepped and draped in sterile fashion. Ultrasound was used to identify the C2 spinous process and lamina. After identifying the occipital artery and nerve, the skin around the planned entry point and the subcutaneous tissues were injected with lidocaine 1%. An introducer needle and stimulating probe were assembled, inserted and advanced under ultrasound guidance. The introducer needle was delivered to a location in proximity to the nerve. Multiple stimulation parameters were used to deliver stimulation to the occipital nerve in concert with stimulating at multiple positions around the nerve. Nerve target acquisition was confirmed noting generation of paresthesias in the high cervical and occipital regions corresponding to the nerve being stimulated. Various electrical parameter combinations were tested, and the lead location was adjusted (physically relocated) until the patient indicated paresthesia/muscle tension overlapping the occipital region. The stimulating probe was removed from the introducer and a percutaneous lead was guided through the needle and delivered to a location in similar proximity to the nerve. Final location was verified with electrical stimulation and documented with ultrasound. The introducer needle was removed, and the exposed end of the percutaneous lead was attached to an external stimulator unit. Various electrical parameter combinations were again tested until the patient indicated paresthesia or muscle tension in the occipital region. After confirming that lead impedance was in the normal range, the external unit was detached, the needle was removed, and the lead was anchored at the skin. The lead was threaded into the connector block and electrical continuity and desired patient response was confirmed. The connector block was attached to the external stimulator unit. The site was covered with a sterile occlusive pressure dressing. The patient was observed for stability of vital signs and comfort. Patient was dischared in stable condition. Sprint PNS Device: Sprint PNS Device [id number] Percutaneous Peripheral Neuroelectrode Procedure: 63752 - Percutaneous Peripheral Neuroelectrode Procedure code (CPT) selection complete Office Meds lidocaine HCl 10 mg/mL (1 %) injection solution Performing Provider: Liz Longo APRN, KERRY Performing Location: [facility] Administered by: Lily Cisneros LPN on 09/19/24 13:08 Dose Route Admin Location Dispensed Lot Number Expiration Date [facility] Supervisor Maintenance [employer]ustodians 5 mL subcut 5 mL Assessment & Plan Assessment & Plan (1) Occipital neuralgia: Code(s): M54.81 - Occipital neuralgia Category: Medical Qualifiers: Laterality: bilateral Qualified Code(s): M54.81 - Occipital neuralgia Plan Patient is status post temporary left occipital nerve stimulator placement. Patient tolerated procedure well and was discharged home in stable condition with discharge instructions. All questions were answered. We will follow-up via telephone or in clinic to assess response to therapy. A follow-up appointment was made during today's visit. Orders: Orders AMB Sprint PNS 09/19/24 M54.81 - Occipital neuralgia US guide needle placement 09/19/24 M54.81 - Occipital neuralgia Coding Level of Care Code Procedure Only Diagnoses Bilateral occipital neuralgia M54.81 Laterality: bilateral CPT Codes Sprint PNS - Sprint PNS Device: Sprint PNS Device ([id number]) Sprint PNS - SPRINT: 78979 - Percutaneous Peripheral Neuroelectrode ([id number]) Implantable Device Implantable Device Implantable Devices Qty Supervisor Maintenance [employer] Custodians Implant Date Expiration Date Analgesic PENS system 1 [employer] 09/19/24 01/02/25
[2024-09-19 12:55] VITALS: BP 97/65; PULSE 88; O2SAT 98
[2024-09-19 13:57] VITALS: BP 130/79; PULSE 79; O2SAT 99
== END 2024-09-19 13:58 | disposition home or self-care (01) ==
LOC: HO.PMCPRC 12:46
PROVIDERS: Visit Provider Internal Medicine
DX: M54.81 Occipital neuralgia (principal)
CPT/HCPCS: 64555

== ENCOUNTER 2024-09-23 09:55 | Outpatient (AMB) | payer BC, SELFPAY ==
--- NOTE | 2024-09-23 09:59 | MHC.OFFVIS ---
Vital Signs 09/23/24 10:01 Height 5 ft 9 in Weight 167 lb BMI 24.7 BP 136/82 Blood Pressure Location Lt brachial Position Sitting Respiration 15 Pulse 97 Pulse Source Pulse Oximeter Pulse Oximetry (%) 96 Oxygen Delivery Method Room Air Intake Visit Reasons: s/p left occipital Sprint Allergies No Known Allergies Allergy (Verified 09/23/24 10:03) Medication List - Last Reconciled 09/23/24 by Lily Cisneros LPN amantadine HCl 100 mg PO DAILY amitriptyline 10 mg PO BEDTIME gabapentin 300 mg PO TID metformin ER 2,000 mg PO BID semaglutide 2 mg subcut QWEEK topiramate (Topamax) 50 mg PO BID venlafaxine ER (Effexor XR) 37.5 mg PO BEDTIME HPI HPI s/p left occipital Sprint: Details: 63-year-old male who presents today to the office for a status post left occipital nerve sprint. The patient is yet to get notable relief following the procedure. The patient endorses appropriate paresthesia sensation from the device. He has tried increasing the device intensity but unable to tolerate it well so he decreased the intensity. He had severe neck pain immediately following the procedure, which has improved since procedure. Past procedures 09/19/24: left occipital peripheral nerve stimulator device: No initial relief. 09/02/24: Sherry-cranial nerve blocks: % relief. 08/14/24: Sherry-cranial nerve blocks: Short-term relief. 05/29/23: Greater and Lesser Occipital Nerve Block, Bilateral: % relief. [facility] Medical History Anxiety Irritable bowel syndrome Chronic migraine without aura MICHEAL on CPAP Headache Diabetes Family History Father Dementia Diabetes History of heart attack Mother Stomach cancer Social History Alcohol intake: current Alcohol intake frequency: does not drink Patient Tobacco Use Status: Former Tobacco user Review of Systems Const All systems reviewed & are unremarkable except as noted in HPI and below Physical Exam Vital Signs: Last Vital Signs Pulse 97 09/23/24 10:01 Resp 15 09/23/24 10:01 BP 136/82 09/23/24 10:01 Pulse Ox 96 09/23/24 10:01 Oxygen Delivery Method Room Air 09/23/24 10:01 BMI result Body Mass Index 24.7 General: Appears afebrile. Alert and oriented. Mood and affect appropriate. Follows and participates in conversation appropriately. Respiratory effort is unlabored. Able to transition from sit to stand unassisted. Ambulates with bilaterally normal heel strike and toe off. Lead?insertion?site?was?clean,?dry?and?intact. Results Reviewed Results Reviewed: No imaging is available for review. Assessment & Plan Assessment & Plan (1) Occipital neuralgia: Code(s): M54.81 - Occipital neuralgia Category: Medical Qualifiers: Laterality: bilateral Qualified Code(s): M54.81 - Occipital neuralgia Plan He will continue with the stimulation device therapy. Follow up in one week for placement of the device on the right side. Scribed for Dr. Cervantes by Doe Munson, medical billing specialist, on 09/23/2024. I, Dr. Cervantes, have personally reviewed and agree with the information entered by the scribe. Coding Level of Care Code Est Pt Level 3 (35016) Diagnoses Bilateral occipital neuralgia M54.81 Laterality: bilateral
[2024-09-23 10:01] VITALS: BP 136/82; PULSE 97; RESP 15; O2SAT 96; BMI 24.7
== END 2024-09-23 10:29 | disposition home or self-care (01) ==
PROVIDERS: Visit Provider Internal Medicine
DX: M54.81 Occipital neuralgia (principal)
CPT/HCPCS: 99024

== ENCOUNTER → 2024-09-23 09:55 | Outpatient (BNVA) | payer BC, SELFPAY | PROVIDERS: Visit Provider Internal Medicine ==

== ENCOUNTER 2024-10-10 06:16 | Outpatient (REF) | payer BC, SELFPAY ==
--- OUTSIDE RECORDS SUMMARY | 2024-10-10 06:19 | XMS_ITS | Continuity of Care Document ---
Author Organization [place] - [facility], [facility] Address [address] [place] [address] Care Team Providers Care Vp [employer] Name Role Phone [facility] Care Provi graciela Assessment Encounter Date Assessment Date Assessment LastModified by Organization Details LastModified Time 08/27/2024 08/27/2024 Review of sleep study shows patient has moderate to severe obstructive sleep apnea. Further screening to assess candidacy for the inspire hypoglossal nerve stimulator with a drug-induced sleep endoscopy was offered. This examination is performed under anesthesia to help stimulate the onset of obstructive sleep apnea events. This will be monitored with a small camera in the back of the nose. Occasionally it is determined that the pattern of collapse in their pharynx would not be helped by the inspire hypoglossal nerve stimulator implant and it is appropriate to screen for these patients to avoid unnecessary surgical procedures. Risks of this procedure beyond the anesthesia medications that are given include possible bleeding from the nose where the instruments are passed. No new prescriptions are needed after the procedure. We will review results with a telehealth call approximately 1 week after the procedure. [email or web address] Not available 08/27/2024 09:58:48 Plan of Treatment Reminders Order Date Submit Date Provider Last Modified By Organization Details Last Modified Time Details Appointments SURGERY 60 2024 11:00A Charley ROBLES MD Not available Not available Not available Telehealt h 2024 04:15P Charley ROBLES MD Not available Not available Not available Lab None recorded. Referral None recorded. Procedures drug-carmencita nelda sleep endoscopy (SURG) 2023 024 [email or web address] Not available 08/27/2024 16:41:14 Surgeries None recorded. Imaging None recorded. Medication Orders None recorded. Patient TargetsNo targets recorded. Patient InstructionsNo instructions recorded. Reason for Referral None Reported. Problems Name Problem SNOMED Code Status Onset Date Resolution Date Notes Provider Name and Address Organization Details Recorded Time Hypertrop hy of nasal turbinate s 10566780 Active 2019 Hypertrop hy of nasal turbinate s; Note: Date Diagnosed : 07/22/2020 6:53 PM (J34.3) Not Available [facility] 4 02:23:02 Obstructi ve sleep apnea syndrome 72844789 Active 2019 Obstructi ve sleep apnea (adult) (pediatri c); Note: Date Diagnosed : 07/22/2020 6:53 PM (G47.33) Not Available [facility] 4 02:22:23 Chronic daily headache 64261797019 4102 Active 2023 CHARLES ROBLES MD [address] [place] [address], [place], [address] , [facility] 4 15:25:20 Problem Notes None recorded. Procedures Surgical History Date Name Laterality Status Provider Name and Address Organization Details Recorded Time 08/27/2024 FOL_DP completed CHARLES ROBLES MD [address] [place] [address], [place], [address], [facility] 08/27/2024 09:58:34 Imaging Results None recorded. Procedure Notes None recorded. Medical Equipment None Reported. Medications Name Sig Start Date Stop Date Status Note LastModified by Organization Details LastModified Time celecoxib 200 mg capsule TAKE 1 CAPSULE BY MOUTH 2 (TWO) TIMES A DAY NEEDED FOR HEADACHE active Not Available Not Available No t Available silver sulfadiaz ine 1 % topical cream APPLY A THIN FILM TO THE PERIANAL SKIN TWICE DAILY active Not Available Not Available No t Available venlafaxi ne ER 37.5 mg capsule,e xtended release 24 hr active Not Available Not Available Not Available citalopra m 10 mg tablet TAKE 1 TABLET BY MOUTH EVERY DAY active Not Available Not Available No t Available chlorzoxa zone 500 mg tablet TAKE 1 TABLET BY MOUTH TWICE DAILY NEEDED active Not Available Not Available No t Available ondansetr on HCl 4 mg tablet TAKE 1 TO 2 TABLETS BY MOUTH EVERY 8 HOURS NEEDED FOR NAUSEA active Not Available Not Available No t Available propranol ol ER 60 mg capsule,2 4 hr,extend ed release TAKE 1 CAPSULE BY MOUTH AT BEDTIME FOR MIGRAINE PREVENTI ON 08/27 completed Not Available Not Available Not Available glipizide ER 5 mg tablet, extended release 24 hr TAKE 1 TABLET BY MOUTH TWICE DAILY BEFORE MEALS active Not Available Not Available No t Available topiramat e 25 mg tablet TAKE 1 TABLET BY MOUTH TWICE DAILY X 7 DAYS THEN TAKE 2 TABLETS BY MOUTH TWICE DAILY FOR 7 DAYS THEN TAKE 3 TABLETS TWICE DAILY FOR 14 DAYS active Not Available Not Available No t Available amantadin e HCl 100 mg capsule active Not Available Not Available Not Available cyprohept adine 4 mg tablet TAKE 1 TABLET BY MOUTH THREE TIMES DAILY NEEDED FOR SEVERE HEADACHE . WILL CAUSE DROWSINE SS active Not Available Not Available No t Available amitripty line 25 mg tablet TAKE 1 TABLET BY MOUTH NIGHTLY AT BEDTIME 08/27 completed Not Available Not Available Not Available amitripty line 10 mg tablet TAKE 1 TABLET BY MOUTH AT BEDTIME THEN STOP 08/27 completed Not Available Not Available Not Available dexametha sone 2 mg tablet TAKE 2 TABS BY MOUTH DAILY WITH BREAKFAS T FOR 2 DAYS THEN 1 TABLET DAILY WITH BREAKFAS T FOR 4 DAYS 08/27 completed Not Available Not Available Not Available dexametha sone 4 mg tablet active Not Available Not Available Not Available gabapenti n 300 mg capsule TAKE 1 TO 2 CAPSULES BY MOUTH THREE TIMES DAILY NEEDED FOR SEVERE PAIN active Not Available Not Available No t Available scopolami ne 1 mg over 3 days transderm al patch APPLY 1 PATCH TOPICALL Y TO THE SKIN EVERY 3 DAYS active Not Available Not Available No t Available methylpre dnisolone 4 mg tablets in a dose pack FOLLOW PACKAGE DIRECTIO NS active Not Available Not Available No t Available metformin ER 500 mg tablet,ex tended release 24 hr TAKE 2 TABLETS BY MOUTH TWICE DAILY active Not Available Not Available No t Available dicyclomi ne 10 mg capsule active Not Available Not Available Not Available ipratropi um bromide 21 mcg (0.03 %) nasal spray [place] 2 spray into both nostrils three times a day 08/27 completed Medicati on ID: [id number] D uration Value: 30 Prescri bed By Name: Charles Robles M.D. Bra nd Name: ipratrop ium bromide Send Method: E-Prescr ibed Sub s Allowed: subs OK Medic ationGen ericName : ipratrop ium bromide Not Available Not Available Not Available topiramat e 50 mg tablet TAKE 2 TABLETS BY MOUTH TWICE A DAY 08/27 completed Not Available Not Available Not Available duloxetin e 30 mg capsule,d elayed release TAKE 1 CAPSULE BY MOUTH EVERY MORNING X 3 WEEKS THEN TAKE 2 CAPSULES BY MOUTH EVERY MORNING active Not Available Not Available No t Available duloxetin e 60 mg capsule,d elayed release TAKE 1 CAPSULE BY MOUTH EVERY MORNING active Not Available Not Available No t Available mesalamin e 1,000 mg rectal supposito ry UNWRAP & INSERT 1 SUPPOSIT ORY RECTALLY AT BEDTIME 08/27 completed Not Available Not Available Not Available magnesium 400 mg (as magnesium oxide) capsule TAKE 1 CAPSULE BY MOUTH AT BEDTIME 08/27 completed Not Available Not Available Not Available Farxiga 10 mg tablet TAKE 1 TABLET BY MOUTH DAILY active Not Available Not Available No t Available riboflavi n (vitamin B2) 400 mg tablet TAKE 1 TABLET BY MOUTH EVERY MORNING active Not Available Not Available No t Available Qulipta 60 mg tablet active Not Available Not Available Not Available Ozempic 0.25 mg or 0.5 mg (2 mg/3 mL) subcutane ous pen injector INJECT 0.5MG INTO THE SKIN ONCE A WEEK active Not Available Not Available No t Available Vitals Date Recorded Body height Body mass index (BMI) Body weight Provider Name and Address Organization Details Last Updated DateTime 08/27/2024 175.26 cm 25 kg/m2 16689.11 g Soumya Ramirez [place] - [facility] 08/27/2024 14:55:11 Social History None recorded. Functional Status None recorded. Mental Status None recorded. Family History Nothing Reported. Medical History No medical history recorded. Past Encounters Encounter ID Performer Location Encounter Start Date Encounter Closed Date Diagnosis/Indication Diagnosis SNOMED-CT Code Diagnosis ICD10 Code [id number] CHARLES ROBLES MD [facility] [address] [address] 08/27/2024 14:36:10 08/27/2024 15:23:46 Obstructive sleep apnea syndrome 23380972 G47.33 Body mass index 25-29 - overweight 469923509 Z68.26 Chronic da phyllis headache 1851527565 82777 R51.9 Health Concerns Section Related Observation LastModified by Organization Detai ls LastModified Time None Recorded Concern Status LastModified by Organization Details LastModified Time None Recorded Payers Encounter Date Sequence Insurance Name Policy Number Policy Bronw Covered Member ID Brown Member ID Guarantor Name 08/27/2024 1 [place] [id number] Bria Paulino [id number] 26 Rios Paulino Notes Date Note Type Note Provider Name and Address Organization Details Recorded Time 08/27/2024 text/html 04/09/2021 home P [facility] at [facility] and mixed events none recordedCPAP trial can tolerate but does not use it often due to discomfort from straps sx of headache for past 16 monthsworking with neurologist and eye specialistgetting nerve yecenia shots to scalp and side of head (different than botox) hx of nasal trauma in 1980s, had a septoplasty to help him breath better in .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 PV 06/11/21 Travis, MICHEAL offered DISE CHARLES ROBLES MD [address] [place] [address], [address], [place] - [facility] 08/27/2024 15:25:36
--- OUTSIDE RECORDS SUMMARY | 2024-10-10 06:19 | XMS_ITS | Data Portability ---
Author Organization [place] - [facility], [facility] Address [address] [address] Care Team Providers Care Trip Rider Name Role Phone [facility] Primary Care Provi graciela Assessment Encounter Date Assessment [...] drug-carmencita nelda sleep endoscopy (SURG) 2023 024 [email or web address] Not available 08/27/2024 16:41:14 Surgeries None recorded. Imaging None recorded. Medication Orders None recorded. Patient TargetsNo targets recorded. Patient InstructionsNo instructions recorded. Reason for Referral None Reported. Problems Name Problem SNOMED Code Status Onset Date Resolution Date Notes Provider Name and Address Organization Details Recorded Time Hypertrop hy of nasal turbinate s 81297079 Active 2019 Hypertrop hy of nasal turbinate s; Note: Date Diagnosed : 07/22/2020 6:53 PM (J34.3) Not Available [facility] 4 02:23:02 Obstructi ve sleep apnea syndrome 69433819 Active 2019 Obstructi ve sleep apnea (adult) (pediatri c); Note: Date Diagnosed : 07/22/2020 6:53 PM (G47.33) Not Available [facility] 4 02:22:23 Chronic daily headache 78961961285 4102 Active 2023 CHARLES ROBLES MD [address] [place] [address], [place], [address] , [facility] 4 15:25:20 Problem Notes None recorded. Procedures Surgical History Date Name Laterality Status Provider Name and Address Organization Details Recorded Time 08/27/2024 FOL_DP completed CHARLES ROBLES MD [address] [place] [address], , [address], [facility] 08/27/2024 09:58:34 Imaging Results None recorded. Procedure [...] bromide 21 mcg (0.03 %) nasal spray [place] 2 spray into both nostrils three times a day 08/27 completed Medicati on ID: [id number] D uration Value: 30 Prescri bed By [...] Updated DateTime 08/27/2024 175.26 cm 25 kg/m2 10093.11 g Soumya Ramirez [place] - [facility] 08/27/2024 14:55:11 Social History None recorded. Functional Status None recorded. Mental Status None recorded. Family History Nothing Reported. Medical History No medical history recorded. Past Encounters Encounter ID Performer Location Encounter Start Date Encounter Closed Date Diagnosis/Indication Diagnosis SNOMED-CT Code Diagnosis ICD10 Code [id number] CHARLES ROBLES MD [facility] [address] [address] 08/27/2024 14:36:10 08/27/2024 15:23:46 Obstructive sleep apnea syndrome 24125938 G47.33 Body mass index 25-29 - overweight 693149909 Z68.26 Chronic da phyllis headache 0191071073 95833 R51.9 Health Concerns Section Related Observation LastModified by Organization Detai ls LastModified Time None Recorded Concern Status LastModified by Organization Details LastModified Time None Recorded Advance Directives Directive None Recorded Payers Encounter Date Sequence Insurance Name Policy Number Policy Brown Covered Member ID Brown Member ID Guarantor Name 08/27/2024 1 [place] [id number] Bria Paulino [id number] Rios Paulino Notes Date Note Type Note Provider Name and Address Organization Details Recorded Time 08/27/2024 text/html 04/09/2021 home P SG at [facility] [address] and mixed events none recordedCPAP [...] Travis, MICHEAL offered DISE CHARLES ROBLES MD [address] [place] [address], [address], [place] - [facility] 08/27/2024 15:25:36
== END 2024-10-10 06:17 | disposition home or self-care (01) ==
LOC: CF 06:16
PROVIDERS: Visit Provider Internal Medicine
DX: M54.81 Occipital neuralgia (principal)
CPT/HCPCS: J2003

== ENCOUNTER 2024-10-11 10:03 | Outpatient (AMB) | payer BC, SELFPAY ==
--- NOTE | 2024-10-11 10:12 | MHC.OFFVIS ---
Vital Signs 10/11/24 10:13 Height 5 ft 9 in Weight 167 lb BMI 24.7 BP 134/78 Blood Pressure Location Lt brachial Position Sitting Respiration 16 Pulse 97 Pulse Source Pulse Oximeter Pulse Oximetry (%) 99 Oxygen Delivery Method Room Air Intake Visit Reasons: pericranial/occipital NB Allergies No Known Allergies Allergy (Verified 10/11/24 10:14) Medication List - Last Reconciled 10/11/24 by Lily Cisneros LPN amantadine HCl 100 mg PO DAILY amitriptyline 10 mg PO BEDTIME gabapentin 300 mg PO TID hydrocortisone 1% (Cortisone (hydrocortisone)) 1 appl topical BID-QID PRN metformin ER 2,000 mg PO BID semaglutide 2 mg subcut QWEEK topiramate (Topamax) 50 mg PO BID venlafaxine ER (Effexor XR) 37.5 mg PO BEDTIME HPI HPI pericranial/occipital NB: Details: 63-year-old male who presents today to the office for a pericranial/occipital nerve block. Denies any recent cough, cold, infection, fever or other significant changes in medical history since last office visit.? Past procedures 09/19/24: left occipital peripheral nerve stimulator device: No initial relief. 09/02/24: Sherry-cranial nerve blocks: % relief. 08/14/24: Sherry-cranial nerve blocks: Short-term relief. 05/29/23: Greater and Lesser Occipital Nerve Block, Bilateral: % relief. [facility] Medical History Anxiety Irritable bowel syndrome Chronic migraine without aura MICHEAL on CPAP Headache Diabetes Family History Father Dementia Diabetes History of heart attack Mother Stomach cancer Social History Alcohol intake: current Alcohol intake frequency: does not drink Patient Tobacco Use Status: Former Tobacco user Review of Systems Const All systems reviewed & are unremarkable except as noted in HPI and below Physical Exam Vital Signs: Last Vital Signs Pulse 97 10/11/24 10:13 Resp 16 10/11/24 10:13 BP 134/78 10/11/24 10:13 Pulse Ox 99 10/11/24 10:13 Oxygen Delivery Method Room Air 10/11/24 10:13 BMI result Body Mass Index 24.7 General: Appears afebrile. Alert and oriented. Mood and affect appropriate. Follows and participates in conversation appropriately. Respiratory effort is unlabored. Able to transition from sit to stand unassisted. Ambulates with bilaterally normal heel strike and toe off. Office Procedures Nerve Block Details: Sherry-cranial nerve blocks After obtaining written consent, pre-procedure blood pressure and heart rate were stable and recorded in the nursing record. The patient was in the sitting position. The skin overlying the target pericranial nerves was prepped with alcohol. A 27 gauge 1.5 in needle was used. The needle was placed on the target nerves. Aspiration was negative for heme and synovial fluid. 9 mL of 0.25% bupivacaine was divided between bilateral occipital, supraorbital, supratrochlear and auriculotemporal nerves in her a crown of thornes distribution. The skin was cleansed and hemostasis was ensured. The patient tolerated the procedure well and no complications were encountered. Following the procedure the patient's vital signs were stable. The patient was discharged home in good condition with post-procedural instructions. Time Out: Immediately prior to the procedure, the following was verbally confirmed that there is a signed consent form and that the correct patient, planned procedure, site and side are consistent with documentation and that necessary equipment and/or blood products are available prior to the start of the case. CPT: 81282-Irgbwzz Occipital 60945-Icriy Peripheral Nerve Block Procedure code (CPT) selection complete Results Reviewed Results Reviewed: No imaging is available for review. Assessment & Plan Assessment & Plan (1) Occipital neuralgia: Code(s): M54.81 - Occipital neuralgia Category: Medical Qualifiers: Laterality: bilateral Qualified Code(s): M54.81 - Occipital neuralgia (2) Worsening headaches: Code(s): R51.9 - Headache, unspecified Category: Medical Plan Patient is status post pericranial nerve blocks with bupivacaine. Patient tolerated procedure well and was discharged home in stable condition with discharge instructions.? All questions were answered. We will follow-up in two weeks via telephone or in clinic to assess response to therapy. A follow-up appointment was made during today's visit. Scribed for Dr. Cervantes by Doe Munson medical supply technician, on 10/11/2024. I, Dr. Cervantes, have personally reviewed and agree with the information entered by the scribe. Coding Level of Care Code Procedure Only Diagnoses Bilateral occipital neuralgia M54.81 Laterality: bilateral Worsening headaches R51.9 CPT Codes Nerve Block - CPT: 64202-Lluhczh Occipital ([id number]) Nerve Block - Nerve Block 8: 17753-Ztqbe Peripheral Nerve Block ([id number])
[2024-10-11 10:13] VITALS: BP 134/78; PULSE 97; RESP 16; O2SAT 99; BMI 24.7
== END 2024-10-11 10:35 | disposition home or self-care (01) ==
PROVIDERS: Visit Provider Internal Medicine
DX: M54.81 Occipital neuralgia (principal); R51.9 Headache, unspecified
CPT/HCPCS: 64405; 64450

== ENCOUNTER → 2024-10-11 10:03 | Outpatient (BNVA) | payer BC, SELFPAY | PROVIDERS: Visit Provider Internal Medicine | DX: M54.81 Occipital neuralgia (principal) | CPT/HCPCS: 64405; 64450; J0665 ==

== ENCOUNTER 2024-10-18 10:42 | Outpatient (AMB) | payer BC, SELFPAY ==
--- NOTE | 2024-10-18 10:46 | MHC.OFFVIS ---
Vital Signs 10/18/24 10:47 Height 5 ft 9 in Weight 167 lb BMI 24.7 BP 130/74 Blood Pressure Location Lt brachial Position Sitting Respiration 14 Pulse 73 Pulse Source Pulse Oximeter Pulse Oximetry (%) 99 Oxygen Delivery Method Room Air Intake Visit Reasons: Nerve block/oaky per Dr Sánchez Allergies No Known Allergies Allergy (Verified 11/01/24 09:11) Medication List - Last Reconciled 10/18/24 by Lily Cisneros LPN amantadine HCl 100 mg PO DAILY amitriptyline 10 mg PO BEDTIME gabapentin 300 mg PO TID hydrocortisone 1% (Cortisone (hydrocortisone)) 1 appl topical BID-QID PRN metformin ER 2,000 mg PO BID semaglutide 2 mg subcut QWEEK topiramate (Topamax) 50 mg PO BID venlafaxine ER (Effexor XR) 37.5 mg PO BEDTIME HPI HPI Nerve block/oaky per Dr Sánchez: Details: 63-year-old male who presents today to the office for a nerve block. Denies any recent cough, cold, infection, fever or other significant changes in medical history since last office visit.? Past procedures 10/11/24: Sherry-cranial nerve blocks: % relief. 09/19/24: left occipital peripheral nerve stimulator device: No initial relief. 09/02/24: Sherry-cranial nerve blocks: % relief. 08/14/24: Sherry-cranial nerve blocks: Short-term relief. 05/29/23: Greater and Lesser Occipital Nerve Block, Bilateral: % relief. [facility] Medical History Anxiety Irritable bowel syndrome Chronic migraine without aura MICHEAL on CPAP Headache Diabetes Family History Father Dementia Diabetes History of heart attack Mother Stomach cancer Social History Alcohol intake: current Alcohol intake frequency: does not drink Patient Tobacco Use Status: Former Tobacco user Review of Systems Const All systems reviewed & are unremarkable except as noted in HPI and below Physical Exam Vital Signs: Last Vital Signs Pulse 73 10/18/24 10:47 Resp 14 10/18/24 10:47 BP 130/74 10/18/24 10:47 Pulse Ox 99 10/18/24 10:47 Oxygen Delivery Method Room Air 10/18/24 10:47 BMI result Body Mass Index 24.7 General: Appears afebrile. Alert and oriented. Mood and affect appropriate. Follows and participates in conversation appropriately. Respiratory effort is unlabored. Able to transition from sit to stand unassisted. Ambulates with bilaterally normal heel strike and toe off. Office Procedures Nerve Block Details: Sherry-cranial nerve blocks with Bupivacaine After obtaining written consent, pre-procedure blood pressure and heart rate were stable and recorded in the nursing record. The patient was in the sitting position. The skin overlying the target pericranial nerves was prepped with alcohol. A 27 gauge 1.5 in needle was used. The needle was placed on the target nerves. Aspiration was negative for heme and synovial fluid. 9 mL of 0.25% bupivacaine was divided between bilateral occipital, supraorbital, supratrochlear and auriculotemporal nerves in her a crown of thornes distribution. The skin was cleansed and hemostasis was ensured. The patient tolerated the procedure well and no complications were encountered. Following the procedure the patient's vital signs were stable. The patient was discharged home in good condition with post-procedural instructions. Time Out: Immediately prior to the procedure, the following was verbally confirmed that there is a signed consent form and that the correct patient, planned procedure, site and side are consistent with documentation and that necessary equipment and/or blood products are available prior to the start of the case. 33810-Ymcay Peripheral Nerve Block Procedure code (CPT) selection complete Results Reviewed Results Reviewed: No imaging is available for review. Assessment & Plan Assessment & Plan (1) Occipital neuralgia: Code(s): M54.81 - Occipital neuralgia Category: Medical Qualifiers: Laterality: bilateral Qualified Code(s): M54.81 - Occipital neuralgia Plan Patient is status post pericranial nerve blocks with bupivacaine. Patient tolerated procedure well and was discharged home in stable condition with discharge instructions.? All questions were answered. We will follow-up in two weeks via telephone or in clinic to assess response to therapy. A follow-up appointment was made during today's visit. Scribed for Dr. Cervantes by Doe Munson, medical billing and coding specialist, on 10/18/2024. I, Dr. Cervantes, have personally reviewed and agree with the information entered by the scribe. Medications: New oxycodone Partial Fill upon patient request. 10 mg PO BID PRN 1 tab 0RF pain lorazepam 1 mg PO BEDTIME PRN 1 tab 0RF anxiety Coding Level of Care Code Procedure Only Diagnoses Bilateral occipital neuralgia M54.81 Laterality: bilateral CPT Codes Nerve Block - Nerve Block 8: 50376-Tqafl Peripheral Nerve Block ([id number])
[2024-10-18 10:47] VITALS: BP 130/74; PULSE 73; RESP 14; O2SAT 99; BMI 24.7
--- OUTSIDE RECORDS SUMMARY | 2024-10-18 11:03 | XMS_ITS | Data Portability ---
Author Organization [place] - [facility], Allergy Address [address] [address] Care Team Providers Care Oncology Consultant Name Role Phone [facility] Primary Care Provi graciela Assessment Encounter [...] drug-carmencita nelda sleep endoscopy (SURG) 2023 024 [email or web address] Not available 08/27/2024 16:41:14 Surgeries None recorded. Imaging None recorded. Medication Orders None recorded. Patient TargetsNo targets recorded. Patient InstructionsNo instructions recorded. Reason for Referral None Reported. Problems Name Problem SNOMED Code Status Onset Date Resolution Date Notes Provider Name and Address Organization Details Recorded Time Hypertrop hy of nasal turbinate s 62471714 Active 2019 Hypertrop hy of nasal turbinate s; Note: Date Diagnosed : 07/22/2020 6:53 PM (J34.3) Not Available [facility] 4 02:23:02 Obstructi ve sleep apnea syndrome 20182797 Active 2019 Obstructi ve sleep apnea (adult) (pediatri c); Note: Date Diagnosed : 07/22/2020 6:53 PM (G47.33) Not Available [facility] 4 02:22:23 Chronic daily headache 00552668359 4102 Active 2023 CHARLES ROBLES MD [address] [place] [address], [place], [address] , [facility] 4 15:25:20 Problem Notes None recorded. Procedures Surgical History Date Name Laterality Status Provider Name and Address Organization Details Recorded Time 08/27/2024 FOL_DP completed CHARLES ROBLES MD [address] [place] [address], [place], [address], [facility] 08/27/2024 09:58:34 Imaging Results None recorded. Procedure [...] bromide 21 mcg (0.03 %) nasal spray [place] 2 spray into both nostrils three times a day 08/27 completed Medicati on ID: [id number] D uration Value: 30 Prescri bed By [...] Updated DateTime 08/27/2024 175.26 cm 25 kg/m2 28767.11 g Soumya Ramirez [place] - [facility] 08/27/2024 14:55:11 Social History None recorded. Functional Status None recorded. Mental Status None recorded. Family History Nothing Reported. Medical History No medical history recorded. Past Encounters Encounter ID Performer Location Encounter Start Date Encounter Closed Date Diagnosis/Indication Diagnosis SNOMED-CT Code Diagnosis ICD10 Code [id number] CHARLES ROBLES MD [facility] [address] [address] 08/27/2024 14:36:10 08/27/2024 15:23:46 Obstructive sleep apnea syndrome 97969266 G47.33 Body mass index 25-29 - overweight 507412715 Z68.26 Chronic da phyllis headache 6677735228 87479 R51.9 Health Concerns Section Related Observation LastModified by Organization Detai ls LastModified Time None Recorded Concern Status LastModified by Organization Details LastModified Time None Recorded Advance Directives Directive None Recorded Payers Encounter Date Sequence Insurance Name Policy Number Policy Brown Covered Member ID Brown Member ID Guarantor Name 08/27/2024 1 [place] [id number] Bria Paulino [id number] Rios Paulino Notes Date Note Type Note Provider Name and Address Organization Details Recorded Time 08/27/2024 text/html 04/09/2021 home P SG at [facility] 26AHI 20Central and mixed events none [...] Travis, MICHEAL offered DISE CHARLES ROBLES MD [address] [place] [address], [phone], [place] - [facility] 08/27/2024 15:25:36
--- OUTSIDE RECORDS SUMMARY | 2024-10-18 11:04 | XMS_ITS | Continuity of Care Document ---
Author Organization [place] - [facility], [facility] Address [address] [place] [address] Care Team Providers Care Creative Guru Name Role Phone [facility] Care Provi graciela Assessment Encounter Date Assessment [...] drug-carmencita nelda sleep endoscopy (SURG) 2023 024 Not available 08/27/2024 16:41:14 Surgeries None recorded. Imaging None recorded. Medication Orders None recorded. Patient TargetsNo targets recorded. Patient InstructionsNo instructions recorded. Reason for Referral None Reported. Problems Name Problem SNOMED Code Status Onset Date Resolution Date Notes Provider Name and Address Organization Details Recorded Time Hypertrop hy of nasal turbinate s 83545376 Active 2019 Hypertrop hy of nasal turbinate s; Note: Date Diagnosed : 07/22/2020 6:53 PM (J34.3) Not Available [facility] 4 02:23:02 Obstructi ve sleep apnea syndrome 50704526 Active 2019 Obstructi ve sleep apnea (adult) (pediatri c); Note: Date Diagnosed : 07/22/2020 6:53 PM (G47.33) Not Available [facility] 4 02:22:23 Chronic daily headache 33019985599 4102 Active 2023 CHARLES ROBLES MD [address] [place] [address], [place], [address] , [facility] 4 15:25:20 Problem Notes None recorded. Procedures Surgical History Date Name Laterality Status Provider Name and Address Organization Details Recorded Time 08/27/2024 FOL_DP completed CHARLES ROBLES MD [address] [place] [address], [place], [address], [facility] 08/27/2024 09:58:34 Imaging Results None recorded. [...] bromide 21 mcg (0.03 %) nasal spray [place] 2 spray into both nostrils three times a day 08/27 completed Medicati on ID: [id number] D uration Value: 30 Prescri bed By [...] Updated DateTime 08/27/2024 175.26 cm 25 kg/m2 46630.11 g Soumya Ramirez [place] - [facility] 08/27/2024 14:55:11 Social History None recorded. Functional Status None recorded. Mental Status None recorded. Family History Nothing Reported. Medical History No medical history recorded. Past Encounters Encounter ID Performer Location Encounter Start Date Encounter Closed Date Diagnosis/Indication Diagnosis SNOMED-CT Code Diagnosis ICD10 Code [id number] CHARLES ROBLES MD [facility] [address] [address] 08/27/2024 14:36:10 08/27/2024 15:23:46 Obstructive sleep apnea syndrome 37450146 G47.33 Body mass index 25-29 - overweight 625502813 Z68.26 Chronic da phyllis headache 8262355757 61599 R51.9 Health Concerns Section Related Observation LastModified by Organization Detai ls LastModified Time None Recorded Concern Status LastModified by Organization Details LastModified Time None Recorded Payers Encounter Date Sequence Insurance Name Policy Number Policy Brown Covered Member ID Brown Member ID Guarantor Name 08/27/2024 1 [place] [id number] Bria Paulino [id number] Rios Paulino Notes Date Note Type Note Provider Name and Address Organization Details Recorded Time 08/27/2024 text/html 04/09/2021 home P SG at [facility] 26AHI 20Central and mixed events none recordedCPAP [...] Travis, MICHEAL offered DISE CHARLES ROBLES MD [address] [place] [address], [address], [place] - [facility] 08/27/2024 15:25:36
== END 2024-10-18 11:14 | disposition home or self-care (01) ==
PROVIDERS: Visit Provider Internal Medicine
DX: M54.81 Occipital neuralgia (principal)
CPT/HCPCS: 64400; 64405; 64450

== ENCOUNTER → 2024-10-18 10:42 | Outpatient (BNVA) | payer BC, SELFPAY | PROVIDERS: Visit Provider Internal Medicine | DX: M54.81 Occipital neuralgia (principal) | CPT/HCPCS: J0665 ==

== ENCOUNTER 2024-10-24 06:45 | Outpatient (REF) | payer BC, SELFPAY | END 2024-10-24 06:46 | disposition home or self-care (01) | LOC: CF 06:45 | PROVIDERS: Visit Provider Internal Medicine | DX: M54.81 Occipital neuralgia (principal) | CPT/HCPCS: 64555; C1778; J2003 ==

== ENCOUNTER 2024-10-24 12:40 | Outpatient (AMB) | payer BC, SELFPAY ==
[2024-10-24 12:55] VITALS: BP 106/74; PULSE 87; O2SAT 99
--- NOTE | 2024-10-24 12:55 | MHC.OFFVIS ---
Vital Signs 10/24/24 12:55 BP 106/74 Blood Pressure Location Lt brachial Position Sitting Pulse 87 Pulse Source Pulse Oximeter Pulse Oximetry (%) 99 Oxygen Delivery Method Room Air Intake Visit Reasons: Bill occipital Sprint Allergies No Known Allergies Allergy (Verified 10/18/24 10:49) HPI HPI Bill occipital Sprint: Details: Patient presents for scheduled procedure. Denies any recent cough, cold, infection, fever or other significant changes in medical history since last office visit. [facility] Medical History Anxiety Irritable bowel syndrome Chronic migraine without aura MICHEAL on CPAP Headache Diabetes Family History Father Dementia Diabetes History of heart attack Mother Stomach cancer Social History Alcohol intake: current Alcohol intake frequency: does not drink Patient Tobacco Use Status: Former Tobacco user Physical Exam Vital Signs: Last Vital Signs Pulse 87 10/24/24 12:55 BP 106/74 10/24/24 12:55 Pulse Ox 99 10/24/24 12:55 Oxygen Delivery Method Room Air 10/24/24 12:55 Office Procedures Details: Occipital Nerve Stimulation Lead Placement, SPR (Sprint) System, Right Initial Placement, Left Replacement, ultrasound-guided ? After the risks, benefits and alternatives were discussed with the patient and informed consent was obtained, patient was placed in the prone position and padded to foster comfort. The skin overlying the cervical spine was prepped and draped in sterile fashion. Ultrasound was used to identify the C2 spinous process and lamina. After identifying the occipital artery and nerve, the skin around the planned entry point and the subcutaneous tissues were injected with lidocaine 1%. An introducer needle and stimulating probe were assembled, inserted and advanced under ultrasound guidance. The introducer needle was delivered to a location in proximity to the right occipital nerve. Multiple stimulation parameters were used to deliver stimulation to the occipital nerve in concert with stimulating at multiple positions around the nerve. Nerve target acquisition was confirmed noting generation of paresthesias in the high cervical and occipital regions corresponding to the nerve being stimulated. Various electrical parameter combinations were tested, and the lead location was adjusted (physically relocated) until the patient indicated paresthesia/muscle tension overlapping the occipital region. The stimulating probe was removed from the introducer and a percutaneous lead was guided through the needle and delivered to a location in similar proximity to the nerve. Final location was verified with electrical stimulation and documented with ultrasound. The introducer needle was removed, and the exposed end of the percutaneous lead was attached to an external stimulator unit. Various electrical parameter combinations were again tested until the patient indicated paresthesia or muscle tension in the right occipital region. After confirming that lead impedance was in the normal range, the external unit was detached, the needle was removed, and the lead was anchored at the skin. The lead was threaded into the connector block and electrical continuity and desired patient response was confirmed. The connector block was attached to the external stimulator unit. The site was covered with a sterile occlusive pressure dressing. The same process was then repeated for the left side. The patient was observed for stability of vital signs and comfort. Patient was dischared in stable condition. Sprint PNS Device: Sprint PNS Device 60194 Percutaneous Peripheral Neuroelectrode Procedure: 39833 - Percutaneous Peripheral Neuroelectrode Procedure code (CPT) selection complete Office Meds lidocaine HCl 10 mg/mL (1 %) injection solution Performing Provider: Liz Longo APRN, CNP Performing Location: [facility] Administered by: Lily Cisneros LPN on 10/24/24 13:48 Dose Route Admin Location Dispensed Lot Number Expiration Date [facility] [employer]isubmarine Weapons Officer 5 mL subcut 5 mL Assessment & Plan Assessment & Plan (1) Occipital neuralgia: Code(s): M54.81 - Occipital neuralgia Category: Medical Qualifiers: Laterality: bilateral Qualified Code(s): M54.81 - Occipital neuralgia Plan Patient is status post right occipital nerve stimulator initial placement and left occipital nerve stimulator replacement. Patient tolerated procedure well and was discharged home in stable condition with discharge instructions. All questions were answered. We will follow-up via telephone or in clinic to assess response to therapy. A follow-up appointment was made during today's visit. Orders: Orders AMB Sprint PNS Today Liz Longo APRN, CNP M54.81 - Occipital neuralgia AMB Sprint PNS Today Liz Longo APRN, CNP M54.81 - Occipital neuralgia US guide needle placement Today Liz Longo APRN, CNP M54.81 - Occipital neuralgia Medications: New lidocaine HCl 5 mL subcut ONCE 5 mL Gene Octavio Cervantes MD M54.81 - Occipital neuralgia Coding Level of Care Code Procedure Only Diagnoses Bilateral occipital neuralgia M54.81 Laterality: bilateral CPT Codes Sprint PNS - Sprint PNS Device: Sprint PNS Device ([id number]) Sprint PNS - SPRINT: 59247 - Percutaneous Peripheral Neuroelectrode ([id number]) Comment There is no charge from [employer] for replacement leads Implantable Device Implantable Device Implantable Devices Qty Antisubmarine Weapons Officer Implant Date Expiration Date Analgesic PENS system 1 [employer] 10/24/24 12/27/25 Analgesic PENS system 1 [employer] 10/24/24 07/15/26
== END 2024-10-24 15:08 | disposition home or self-care (01) ==
PROVIDERS: Visit Provider Internal Medicine
DX: M54.81 Occipital neuralgia (principal)
CPT/HCPCS: 64555

== ENCOUNTER 2024-11-01 08:47 | Outpatient (AMB) | payer BC, SELFPAY ==
--- OUTSIDE RECORDS SUMMARY | 2024-11-01 09:02 | XMS_ITS | Data Portability ---
Author Organization [place] - [facility], Allergy Address [address] [address] Care Team Providers Care Industrial Cafeteria Manager Name Role Phone [facility] Primary Care Provi graciela Assessment Encounter [...] drug-carmencita nelda sleep endoscopy (SURG) 2023 024 [email or web address] Not available 08/27/2024 16:41:14 Surgeries None recorded. Imaging None recorded. Medication Orders None recorded. Patient TargetsNo targets recorded. Patient InstructionsNo instructions recorded. Reason for Referral None Reported. Problems Name Problem SNOMED Code Status Onset Date Resolution Date Notes Provider Name and Address Organization Details Recorded Time Hypertrop hy of nasal turbinate s 48992280 Active 2019 Hypertrop hy of nasal turbinate s; Note: Date Diagnosed : 07/22/2020 6:53 PM (J34.3) Not Available [facility] 4 02:23:02 Obstructi ve sleep apnea syndrome 82933592 Active 2019 Obstructi ve sleep apnea (adult) (pediatri c); Note: Date Diagnosed : 07/22/2020 6:53 PM (G47.33) Not Available [facility] 4 02:22:23 Chronic daily headache 78377339356 4102 Active 2023 CHARLES ROBLES MD [address] [place] [address], [place], [address] , [facility] 4 15:25:20 Problem Notes None recorded. Procedures Surgical History Date Name Laterality Status Provider Name and Address Organization Details Recorded Time 08/27/2024 FOL_DP completed CHARLES ROBLES MD [address] [place] [address], [place], [address], [facility] 08/27/2024 09:58:34 Imaging Results None recorded. [...] bromide 21 mcg (0.03 %) nasal spray [place] 2 spray into both nostrils three times a day 08/27 completed Medicati on ID: [id number] D uration Value: 30 Prescri bed By [...] Updated DateTime 08/27/2024 175.26 cm 25 kg/m2 50661.11 g Soumya Ramirez [place] - [facility] 08/27/2024 14:55:11 Social History None recorded. Functional Status None recorded. Mental Status None recorded. Family History Nothing Reported. Medical History No medical history recorded. Past Encounters Encounter ID Performer Location Encounter Start Date Encounter Closed Date Diagnosis/Indication Diagnosis SNOMED-CT Code Diagnosis ICD10 Code [id number] CHARLES ROBLES MD [facility] [address] [address] 08/27/2024 14:36:10 08/27/2024 15:23:46 Obstructive sleep apnea syndrome 95694432 G47.33 Body mass index 25-29 - overweight 526140358 Z68.26 Chronic da phyllis headache 2572077021 58430 R51.9 Health Concerns Section Related Observation LastModified by Organization Detai ls LastModified Time None Recorded Concern Status LastModified by Organization Details LastModified Time None Recorded Advance Directives Directive None Recorded Payers Encounter Date Sequence Insurance Name Policy Number Policy Brown Covered Member ID Brown Member ID Guarantor Name 08/27/2024 1 [place] [id number] Bria Paulino [id number] Rios Paulino Notes Date Note Type Note Provider Name and Address Organization Details Recorded Time 08/27/2024 text/html 04/09/2021 home P SG at [facility] 26AHI 20Central and mixed events none [...] Travis, MICHEAL offered DISE CHARLES ROBLES MD [address] [place] [address], [address], [place] [facility] 08/27/2024 15:25:36
--- OUTSIDE RECORDS SUMMARY | 2024-11-01 09:02 | XMS_ITS | Continuity of Care Document ---
Author Organization [place] - [facility], [facility] Address [address] [place] [address] Care Team Providers Care Valve Technician Name Role Phone [facility] Care Provi graciela Assessment Encounter Date Assessment [...] drug-carmencita nelda sleep endoscopy (SURG) 2023 024 [email or web address] Not available 08/27/2024 16:41:14 Surgeries None recorded. Imaging None recorded. Medication Orders None recorded. Patient TargetsNo targets recorded. Patient InstructionsNo instructions recorded. Reason for Referral None Reported. Problems Name Problem SNOMED Code Status Onset Date Resolution Date Notes Provider Name and Address Organization Details Recorded Time Hypertrop hy of nasal turbinate s 86157403 Active 2019 Hypertrop hy of nasal turbinate s; Note: Date Diagnosed : 07/22/2020 6:53 PM (J34.3) Not Available [facility] 4 02:23:02 Obstructi ve sleep apnea syndrome 01315197 Active 2019 Obstructi ve sleep apnea (adult) (pediatri c); Note: Date Diagnosed : 07/22/2020 6:53 PM (G47.33) Not Available [facility] 4 02:22:23 Chronic daily headache 79789371498 4102 Active 2023 CHARLES ROBLES MD [address] [place] [address], [place], [address] , [facility] 4 15:25:20 Problem Notes None recorded. Procedures Surgical History Date Name Laterality Status Provider Name and Address Organization Details Recorded Time 08/27/2024 FOL_DP completed CHARLES ROBLES MD [address] [place] [address], [place], [address], [facility] 08/27/2024 09:58:34 Imaging Results None recorded. [...] bromide 21 mcg (0.03 %) nasal spray [place] 2 spray into both nostrils three times a day 08/27 completed Medicati on ID: [id number] D uration Value: 30 Prescri bed By [...] Updated DateTime 08/27/2024 175.26 cm 25 kg/m2 96681.11 g Soumya Ramirez [place] - [facility] 08/27/2024 14:55:11 Social History None recorded. Functional Status None recorded. Mental Status None recorded. Family History Nothing Reported. Medical History No medical history recorded. Past Encounters Encounter ID Performer Location Encounter Start Date Encounter Closed Date Diagnosis/Indication Diagnosis SNOMED-CT Code Diagnosis ICD10 Code [id number] CHARLES ROBLES MD [facility] [address] [address] 08/27/2024 14:36:10 08/27/2024 15:23:46 Obstructive sleep apnea syndrome 71417497 G47.33 Body mass index 25-29 - overweight 992873532 Z68.26 Chronic da phyllis headache 5428115296 41677 R51.9 Health Concerns Section Related Observation LastModified by Organization Detai ls LastModified Time None Recorded Concern Status LastModified by Organization Details LastModified Time None Recorded Payers Encounter Date Sequence Insurance Name Policy Number Policy Brown Covered Member ID Brown Member ID Guarantor Name 08/27/2024 1 [place] [id number] Bria Paulino [id number] Rios Paulino Notes Date Note Type Note Provider Name and Address Organization Details Recorded Time 08/27/2024 text/html 04/09/2021 home P SG at [facility] 26AHI 20Central and mixed events none [...] Travis, MICHEAL offered DISE CHARLES ROBLES MD [address] [place] [address], [address], [place] - [facility] 08/27/2024 15:25:36
--- NOTE | 2024-11-01 09:11 | MHC.OFFVIS ---
Vital Signs 11/01/24 09:12 Height 5 ft 9 in Weight 168 lb BMI 24.8 BP 116/72 Blood Pressure Location Lt brachial Position Sitting Pulse 85 Pulse Oximetry (%) 98 Oxygen Delivery Method Room Air Intake Visit Reasons: s/p jessica occipital Sprint Intake Note: RM 5 Allergies No Known Allergies Allergy (Verified 11/01/24 09:11) Medication List - Last Reconciled 11/01/24 by Anjelica Kat, SHIPPING COORDINATOR amantadine HCl 100 mg PO DAILY amitriptyline 10 mg PO BEDTIME gabapentin 300 mg PO TID hydrocortisone 1% (Cortisone (hydrocortisone)) 1 appl topical BID-QID PRN lorazepam 1 mg PO BEDTIME PRN metformin ER 2,000 mg PO BID oxycodone 10 mg PO BID PRN semaglutide 2 mg subcut QWEEK topiramate (Topamax) 50 mg PO BID venlafaxine ER (Effexor XR) 37.5 mg PO BEDTIME HPI HPI s/p jessica occipital Sprint: Details: Rios is here for follow-up after bilateral occipital nerve stimulator placement. He reports gentle tingling sensation in the back of his head. His headache frequency has decreased and his headache intensity has decreased from 8/10 to 5/10 at this time. He is happy with the initial results. [facility] Medical History Anxiety Irritable bowel syndrome Chronic migraine without aura MICHEAL on CPAP Headache Diabetes Family History Father Dementia Diabetes History of heart attack Mother Stomach cancer Social History Alcohol intake: current Alcohol intake frequency: does not drink Patient Tobacco Use Status: Former Tobacco user Physical Exam Vital Signs: Last Vital Signs Pulse 85 11/01/24 09:12 BP 116/72 11/01/24 09:12 Pulse Ox 98 11/01/24 09:12 Oxygen Delivery Method Room Air 11/01/24 09:12 BMI result Body Mass Index 24.8 On exam today: Appears afebrile. Alert and oriented. Mood and affect appropriate. Follows and participates in conversation appropriately. Respiratory effort is unlabored. Able to transition from sit to stand unassisted. Ambulates with bilaterally normal heel strike and toe off. Able to stand and walk on toes and heels. Lead insertion sites are clean and dry. No visible rash noted. Dressing was replaced in the office today. Assessment & Plan Assessment & Plan (1) Occipital neuralgia: Code(s): M54.81 - Occipital neuralgia Category: Medical Qualifiers: Laterality: bilateral Qualified Code(s): M54.81 - Occipital neuralgia Plan Recommended changing dressings more frequently to help minimize the risk of incubating moisture given his last round of allergic reaction. Follow-up in 7 weeks for lead removal. Patient expressed understanding. Coding Level of Care Code Est Pt Level 3 (73632) Diagnoses Bilateral occipital neuralgia M54.81 Laterality: bilateral
[2024-11-01 09:12] VITALS: BP 116/72; PULSE 85; O2SAT 98; BMI 24.8
== END 2024-11-01 09:24 | disposition home or self-care (01) ==
PROVIDERS: Visit Provider Internal Medicine
DX: M54.81 Occipital neuralgia (principal)
CPT/HCPCS: 99024

== ENCOUNTER → 2024-11-13 09:00 | Outpatient (BNVA) | payer BC, SELFPAY | PROVIDERS: Visit Provider Internal Medicine ==

== ENCOUNTER 2024-12-27 09:49 | Outpatient (AMB) | payer BC, SELFPAY ==
--- NOTE | 2024-12-27 09:53 | A.OFFVIS_ITS ---
Vital Signs 12/27/24 09:55 Height 5 ft 9 in Weight 168 lb BMI 24.8 BP 140/80 H Blood Pressure Location Lt brachial Position Sitting Respiration 16 Pulse 94 Pulse Source Pulse Oximeter Pulse Oximetry (%) 97 Oxygen Delivery Method Room Air Intake Visit Reasons: jessica Sprint removal/mila from 12/25 Manager Medical Device Required: No Allergies No Known Allergies Allergy (Verified 12/27/24 10:00) Medication List - Last Reconciled 12/27/24 by Lily Cisneros LPN amantadine HCl 100 mg PO DAILY amitriptyline 10 mg PO BEDTIME gabapentin 300 mg PO TID hydrocortisone 1% (Cortisone (hydrocortisone)) 1 appl topical BID-QID PRN lorazepam 1 mg PO BEDTIME PRN metformin ER 2,000 mg PO BID oxycodone 10 mg PO BID PRN semaglutide 2 mg subcut QWEEK topiramate (Topamax) 50 mg PO BID venlafaxine ER (Effexor XR) 37.5 mg PO BEDTIME HPI HPI jessica Sprint removal/mila from 12/25: Details: History of Present Illness The patient is a 64-year-old male presenting for follow-up regarding bilateral occipital nerve stimulation for chronic headaches. The patient has experienced chronic headaches for over 18 months, resistant to high-level analgesics like morphine. The recent intervention with temporary occipital nerve stimulation provided substantialrelief, with some challenging days early in the treatment cycle. The patient's demeanor and quality of life have significantly improved since initiating this therapy. Topiramate and venlafaxine are currently part of the pain management regimen, with past attempts at nerve blocks proving ineffective. Plans are in place for neurological evaluations in February at [facility] and [facility]. Concerns remain regarding headaches reverting to previous levels, thus considering permanent lead placement if current therapy fails to sustain benefits. Recent skin irritation from adhesive use has been addressed by switching to hypoallergenic materials. Pain Description - Onset and Timing: Persistent pain for over 18 months. - Location: Bilateral occipital region. - Exacerbating Factors: Stress and inconsistent nerve stimulation. - Relieving Factors: Occipital nerve stimulation, albeit transiently. - Interference: Significant influence on quality of life, now improved with stimulation. Physical Exam - Lead insertion sites are clean and dry. Leads removed with tips intact. Results Pain Management - Affect: Improved demeanor and quality of life since intervention. - Analgesia: Currently using topiramate and venlafaxine; previous use of morphine was ineffective. - Adverse Effects: Nerve blocks were ineffective and caused pain; skin reactions to lead adhesives addressed. - Activities of Daily Living: Improved functionality and life engagement since nerve stimulation. - Aberrant Drug Related Behaviors: Not present. [facility] Medical History Anxiety Irritable bowel syndrome Chronic migraine without aura MICHEAL on CPAP Headache Diabetes Family History Father Dementia Diabetes History of heart attack Mother Stomach cancer Social History Alcohol intake: current Alcohol intake frequency: does not drink Patient Tobacco Use Status: Former Tobacco user Physical Exam Vital Signs: Last Vital Signs Pulse 94 12/27/24 09:55 Resp 16 12/27/24 09:55 BP 140/80 H 12/27/24 09:55 Pulse Ox 97 12/27/24 09:55 Oxygen Delivery Method Room Air 12/27/24 09:55 BMI result Body Mass Index 24.8 Assessment & Plan Assessment & Plan (1) Occipital neuralgia: Code(s): M54.81 - Occipital neuralgia Category: Medical Qualifiers: Laterality: bilateral Qualified Code(s): M54.81 - Occipital neuralgia Plan Plan For the management of chronic headaches, I will continue to monitor the ongoing effects of bilateral occipital nerve stimulation. The patient will remain on topiramate and venlafaxine, evaluating these medications for effectiveness and tolerability. Neurological assessments are scheduled for February, which may guide adjustments in management strategy. Permanent lead placement might be considered if headaches recur within a six-month window. Skin irritation from adhesive reactions has been managed with hypoallergenic substitutes. Continued assessment will occur during neurologist visits at [facility] and [facility]. Patient was informed and verbally consented to the use of an ambient scribe for clinic note documentation during this visit. Discussion Notes I discussed with the patient the current management strategies for his chronic headaches, focusing on the variability in symptom relief from the temporary occipital nerve stimulation. We considered the potential benefits and risks of pursuing more permanent nerve stimulation options should the current strategy fail to maintain its benefits beyond six months. I emphasized the importance of the neurological follow-ups in February to explore additional interventions and management strategies. We also reviewed the risk of insurance constraints regarding frequent temporary lead placements, balancing this with the necessity of symptom management. The patient understands the plan and expresses appreciation for the care provided, highlighting improvement in quality of life and functionality as significant outcomes. Patient Instructions - Continue current medications: topiramate and venlafaxine. - Be observant for any recurrence of headaches returning to baseline levels. - Follow up with scheduled neurology appointments at [facility] and [facility]. - Notify me if headaches resume intensely within six months. - Use hypoallergenic skin adhesives to prevent irritation. - Consider long-term headache management plans during neurology consultations. Coding Level of Care Code Est Pt Level 4 (18361) Diagnoses Bilateral occipital neuralgia M54.81 Laterality: bilateral
[2024-12-27 09:55] VITALS: BP 140/80; PULSE 94; RESP 16; O2SAT 97; BMI 24.8
--- OUTSIDE RECORDS SUMMARY | 2024-12-27 10:41 | XMS_ITS | Continuity of Care Document ---
Author Organization [facility] ter Address [address] [place] [address]- Care Team Providers Care Seater Grinder Name Role Phone Kim LAND, Wong Primary [facility] Phys[id number] Date(s): 12/25/24 - 12/25/[address] [address]- Discharge Disposition: A-D/C Home Attending Physician: Charles Robles MD, I Admitting Physician: Charles Robles MD, I Referring Physician: Charles Robles MD, I Encounter Type: Disch Daystay Allergies, Adverse Reactions, Alerts No Known Allergies Medications acetaminophen/butalbital/caffeine 325 mg-50 mg-40 mg oral tablet TAKE 1 TABLET BY MOUTH EVERY 4 HOURS NEEDED FOR PAIN FOR UP TO 28 DAYS Start Date: 04/16/23 Status: Ordered Repeat number: 1 diazepam 5 mg oral tablet 5 mg, 1, tablet, By Mouth, 2 times a day, PRN, Refills 0, Maintenance, as needed for anxiety, 04/16/23 3:47:00 AM EDT, Partial fill upon patient request if the prescription is for a schedule II opioiddrug. Start Date: 04/16/23 Status: Ordered Repeat number: 1 magnesium oxide 400 mg oral tablet TAKE 1 TABLET BY MOUTH AT BEDTIME Start Date: 04/16/23 Status: Ordered Repeat number: 1 MetFORMIN (Eqv-Glucophage XR) 500 mg oral tablet, extended release TAKE 2 TABLETS BY MOUTH 2 TIMES DAILY. Start Date: 04/16/23 Status: Ordered Repeat number: 1 propranolol 60 mg oral capsule, extended release 60 mg, 1, capsule, By Mouth, Daily, # 90 capsule, Refills 0, Maintenance, 04/16/23 3:47:00 AM EDT, Partial fill upon patient request if the prescription is for a schedule II opioid drug. Start Date: 04/16/23 Status: Ordered Quantity: 90.0 Unit: capsule Repeat number: 1 RIBOFLAVIN 400 MG TABLET RIBOFLAVIN 400 MG TABLET, TAKE 1 TABLET BY MOUTH EVERY MORNING Start Date: 04/16/23 Status: Ordered Repeat number: 1 SUMAtriptan 100 mg oral tablet 1 tablet = 100 mg, By Mouth, Once, PRN as needed for migraine headache, may repeat dose after 2 hours up to a maximum of 200 mg in 24 hours, # 9 tablet, 5 Refills, Maintenance, 04/16/23 3:52:00 AM EDT, Tablet, Partial fill upon patient request if the prescription is for a schedule II opioid drug. Start Date: 04/16/23 Status: Ordered Quantity: 9.0 Unit: tablet Repeat number: 1 SUMAtriptan Succinate Syringe 6 mg/0.5 mL subcutaneous solution 6 MG (0.5 ML) SUBCUTANEOUSLY ONCE NEEDED FOR MIGRAINE HEADACHE MR IN 1 HR (MAX 12MG/24 HR) Start Date: 04/16/23 Status: Ordered Repeat number: 1 topiramate 50 mg oral tablet 1 tablet = 50 mg, By Mouth, 2 times a day, # 180 tablet, 0 Refills, Maintenance, 04/16/23 3:46:00 AMEDT, Tablet, Partial fill upon patient request if the prescription is for a schedule II opioid drug. Start Date: 04/16/23 Status: Ordered Quantity: 180.0 Unit: tablet Repeat number: 1 Problem List Condition Confirmation Course Effective Dates Status Health St atus Informant Cervicogenic headache Confirmed Active Diabetes Confirmed Active Migraine Confirmed Active Obstructive sleep apnea Confirmed Active Vital Signs Most recent to oldest [Reference Range]: 1 2 3 Oxygen Saturation [94-100 %] 96 % (12/25/24 8:15 AM) 95 % (12/25/24 8:14 AM) 97 % (12/25/24 8:13 AM) Pulse Rate [55-90 bpm] 80 bpm (12/25/24 6:53 AM) Blood Pressure [90-138/55-84 mm Hg] 112/88mm Hg (12/25/24 8:15 AM) 111/75mm Hg (12/25/24 8:14 AM) 126/80mm Hg (12/25/24 6:53 AM) Respiratory Rate [16-30 br/min] 15 br/min *L* (12/25/24 8:15 AM) 13 br/min *L* (12/25/24 8:14 AM) 17 br/min (12/25/24 8:13 AM) Temperature [96.8-100.4 DegF] 97.0 DegF (12/25/24 8:12 AM) 97.2 DegF (12/25/24 6:53 AM) Mode of Delivery (Oxygen) Room air (12/25/24 8:15 AM) Room air (12/25/24 8:00 AM) Room air (12/25/24 6:53 AM) Blood pressure sites Arm, left (12/25/24 8:15 AM) Arm, left (12/25/24 8:00 AM) Arm, left (12/25/24 6:53 AM) Temperature Route Temporal (12/25/24 8:12 AM) Temporal (12/25/24 6:53 AM) Dry Weight 77.1 kg (12/25/24 6:53 AM) Dry Weight Obtained Via Standing scale (12/25/24 6:53 AM) History and physical note * Event Display: History and Physical Hospital Authored Date: * Event Display: History and Physical Hospital Authored Date: Note * Aylin Wolfe RN: PERFORM Event Display: Discharge/Transfer Note Hospital Authored Date: [id number] Nursing Discharge Note Entered On: 12/25/2024 8:44 EST Performed On: 12/25/2024 8:44 EST by Aylin Wolfe RN Nursing Discharge Note 2 Discharge Time : 12/25/2024 8:39 EST Discharge Level of Care at Discharge : Home/Penitentiary/Foster Care Patient Left Unit Via : Wheelchair Patient Accompanied Off Unit with : Responsible adult DC Instructions Provided & Signed by Pt : Yes Patient Understands D/C Instructions : Yes Patient Instructions Discharge Signed : Yes Did Pt have Specialty Bed or Wound Vac : No Aylin Wolfe RN - 12/25/2024 8:44 EST * Aylin Wolfe RN: PERFORM Event Display: Patient Education/Instruction Authored Date: [id number] Surgery Adult Discharge Instructions [address] [address] Name: JORDAN BHATIA : 1960?? Visit: 12/25/2024 06:04?? Current Date: 12/25/2024 08:20 ?? Account: [id number]?? Surgery Discharge Instructions We would like to thank you for allowing us to assist you with your healthcare needs. The following includes patient education materials and information regarding your injury/illness. Our entire staffstrives to provide an excellent experience for our patients and their families. PLEASE ENSURE YOU FOLLOW-UP PER THE INSTRUCTIONS BELOW! ?? YOUR OPINION IS IMPORTANT TO US! Please complete the survey you may receive by mail or email. Your feedback will be used to make improvements to the healthcare experiences of our patients and their families. Surveys are administered by [employer] ?? If further treatment with your primary care physician or another doctor is recommended, it is important for you to keep the appointment. Call your primary care physician or return to the Emergency Department immediately if your condition worsens, fails to improve, or new symptoms develop. If you need to find a doctor, you can call [facility] Link for a referral at [phone] or toll free at [phone] ([phone]) or log in to [email or web address].. ?? [facility], in keeping with [facility] guidance, no longer requires face masks for staff, patientsor visitors in most situations. Similiar to time spent indoors at other locations, there is the chance that you were exposed to repiratory viruses during your time with us (such as flu or COVID-19). If you develop symptoms concerning for a viral respiratory infection, please seek testing (and treatment if indicated) from your medical provider or home test kit. ?? You can view and manage your care through the patient portal or by using a health care beau of your choosing. [employer] is a website that allows you to securely view your medical information including your hospital discharge summary, office visit summaries, medications and follow-up visits. You can also request appointments, renew medications, and request access to your medical information using a health care beau of your choosing, or just ask a question. You are entitled to know the individuals who participated in your treatment. This information is available within your medical record and will be provided upon your request. You can enroll at [email or web address] or register d uring your next office visit. You have been discharged from [facility], Patient Care Unit: [facility]??. If you have any questions regarding these instructions after you leave, please call us and we will be happy to assist you. [facility] Your Care Team Attending Physician Charles Robles MD, I?? Discharging Providers Charles Robles MD, I Reason for Admission [facility] [place] Primary Care Provider Wong Alvarez MD? Advance Directive Health Care Proxy on File No What to do next Instructions From Your Doctor ?? Orders?? restrictions, ??12/25/24 8:16:00 EST?? Prescriptions??, ??resume home meds, ??12/25/24 8:16:00 EST?? Scheduled Follow-Up Appointments Monday 2:00 PM EDT ?? Where: [facility] [address] [place] [address]- Status: Pending You Need to Schedule the Following Appointments Follow Up with??Charles Robles Where: [address] [facility] [place] [address]- Business (1) Follow Up with??Wong Alvarez MD When:??In 0 days Where: [address] [place] [address]- Business (1) Discharge Medications JORDAN BHATIA :1960 Visit Date:12/25/2024 Medications: Please continue your medications until treatment is completed or stopped by your provider. You may resume your daily prescription medications. Discuss any questions related to medications with your provider. What How Much When Instructions Next Dose Unchanged Acetaminophen/ Butalbital/ Caffeine (acetaminophen/ butalbital/ caffeine 325 mg-50 mg-40 mg oral tablet) TAKE 1 TABLET BY MOUTH EVERY 4 HOURS NEEDED FOR PAIN FOR UP TO 28 DAYS ?? Unchanged Diazepam (diazepam 5 mg oral tablet) 1 tab(s) Oral Twice a day as needed for as needed for anxiety Unchanged Magnesium Oxide (magnesium oxide 400 mg oral tablet) TAKE 1 TABLET BY MOUTH AT BEDTIME ?? Unchanged Metformin (MetFORMIN (Eqv-Glucophage XR) 500 mg oral tablet, extended release) TAKE 2 TABLETS BY MOUTH 2 TIMES DAILY. ?? Unchanged Miscellaneous Rx (RIBOFLAVIN 400 MG TABLET) TAKE 1 TABLET BY MOUTH EVERY MORNING ?? Unchanged Propranolol (propranolol 60 mg oral capsule, extended release) 1 capsule Oral Daily Unchanged Sumatriptan (SUMAtriptan 100 mg oral tablet) 1 tab(s) Oral Once as needed for as needed for migraine headache may repeat dose after 2 hours up to a maximum of 200 mg in 24 hours ?? Unchanged Sumatriptan (SUMAtriptan Succinate Syringe 6 mg/ 0.5 mL subcutaneous solution) 6 MG (0.5 ML) SUBCUTANEOUSLY ONCE NEEDED FOR MIGRAINE HEADACHE MR IN 1 HR (MAX 12MG/ 24 HR), ?? Unchanged Topiramate (topiramate 50 mg oral tablet) 1 tab(s) Oral Twice a day Allergies (NKA means No Known Allergies) NKA Education Materials Below is the list of Educational Leaflet Providered with your Discharge Instructions. [employer] Patient Education - Surgery Medical Daystay Surgical Overnight Discharge Instructions?? Valuables and Belongings I fully understand and agree that [facility] accepts no responsibility for all my personal property including clothing, toilet articles, radios, jewelry, dentures, hearing aids, rings, money, or any other property that is in my possession or is brought to me after admission. I understand certain valuables may be placed in a hospital safe for a short period of time. I understand that the hospital is not liable for loss or damage due to accident, fire, or other natural occurrence while said property is in the safe. I accept full responsibility for any personal property that I keep with me, and will not hold the hospital responsible in case of loss or disappearance. I acknowledge that i have been encouraged to send valuables and belongings home. ?? Review of Valuable and Belonging List: With patient Date for Pt to Sign Valuables/Belongings: 12/25/24 06:53:00 ?? Valuables & Belongings ?? Clothes Electronic devices Jewelry Monetary Items Personal devices Miscellaneous Medications (Valuables) Valuables at Bedside Jacket, Pants, Shirt, Shoes, Undergarments Cell phone Wedding band ?? Glasses ? Valuables Sent Home ? Valuables Sent to Security ? Valuables Sent to Locker ? Other Discharge Information ? Pulmonary Rehab Status?? Pulmonary Rehab Discharge Status?? Respiratory Rate:??15 br/min??Low ? Common Emergency Awareness Tips IS IT A STROKE? Act FAST and Check for these signs: FACE Does the face look uneven? ARM Does one arm drift down? SPEECH Does their speech sound strange? TIME Call at any sign of stroke ?? Heart Attack Signs Chest discomfort: Most heart attacks involve discomfort in the center of the chest and lasts more than a few minutes, or goes away and comes back. It can feel like uncomfortable pressure, squeezing, fullness or pain. Discomfort in upper body: Symptoms can include pain or discomfort in one or both arms, back, neck, jaw or stomach. Shortness of breath: With or without discomfort. Other signs: Breaking out in a cold sweat, nausea, or lightheaded. Remember, MINUTES DO MATTER. If you experience any of these heart attack warning signs, call to get immediate medical attention! ?? Smoking can increase your chances of developing chronic health problems and can cause harmful effects to other family members in your house. If you smoke, you are strongly encouraged to quit. Please call [facility] [employer] Link at [phone] or [phone] ([phone]) or log in to [email or web address] for referrals to smoking cessation programs. ?? The National Suicide Prevention Hotline is available 22/05 if you or someone you know needs to find a reason to keep living. By calling 2-207-552-Vimodi (7191) you'll be connected to a skilled, trained counselor at a crisis center in your area. SURGERY DISCHARGE INSTRUCTIONS SIGNATURE JORDAN WEISS Location:[facility] Registration Date and Time:12/25/2024 06:04 EST Primary Care Physician: Kim LAND , Wong, Attending Physician: Charles Robles MD, I, I JORDAN BHATIA, have received the above patient education materials/instructions and have verbalized understanding. If ambulance or transport services are being used I further acknowledge being given a choice of service. ?? If you need to contact me, please call me at this number: . Patient/Signals Intelligence Superintendent Name: Patient/Signals Intelligence Superintendent Signature: Relationship to Patient: Witness Name/Signature: Date: * Aylin Wolfe RN: PERFORM, SIGN, VERIFY Event Display: Patient Education Handout Authored Date: * Aylin Wolfe RN: PERFORM Event Display: Patient Education Leaflets Authored Date: Surgery Medical Daystay Surgical Overnight Discharge Instructions ?? 295 Medical Daystay/Surgical Overnight Discharge Instructions ? Since your coordination and judgment may be altered by medication and/or anesthesia, a responsible adult must drive you home from the hospital. ? If you have received medication for pain or sedation while under our care, you should not drive, operate machinery, drink alcohol, or sign any legal documents for 24 hours.?? You should have someone with you at home tonight. ? Remain at home the day of discharge.?? You may be up and about unless otherwise instructed by your physician. ? You may resume your daily prescription medication schedule.?? Any depressant medication should be avoided for 24 hours unless otherwise instructed by your surgeon or anesthesiologist. ? Call your physician for a follow-up appointment.? If you experience unusual or severe pain not relied by your pain medication, excessive bleedingor drainage, persistent nausea and vomiting, excessive swelling or redness, foul odor from incisionsite or fever over 100.6F, you need to call your physician. ? A follow-up phone call by a nurse will be made the day after your procedure.?? If you have stayed with us over night, you will not be receiving a follow-up phone call. ? Nausea and vomiting are a common side effect of prescription pain medication.?? We recommend that pills are not taken on an empty stomach.?? While taking any prescription pain medication you should not drive or drink alcohol. ? Patient Care team information Care Team Personnel Name: Ana Paula Puente RN Position: Loco RN Member Role: Primary Care Nurse Care Team Related Persons Name: KAMLESH BHATIA Insurance Providers Guarantor name: JORDAN BHATIA Health Plan Information #: 1 Payer: [employer] [facility] Member Number: [id number] Policy Number: NA Group Number: [id number] Health Plan Information #: 2 Payer: [employer] Member Number: [id number] Policy Number: NA Group Number: [id number]
--- OUTSIDE RECORDS SUMMARY | 2024-12-27 10:41 | XMS_ITS | Encounter Summary ---
Author Organization [facility] Address [address] [place] [address] Care Team Providers Care Shadowgraph Operator Name Role Phone Olga Leach MD Primary Care Provider Encounter Details Date Type Department Care Team ([facility] st Contact Info) Description 11/04/2024 Telephone Gastroenterology - [address] [place] [id number] Barrera Rivero MD [address] [place] [address] Social History Tobacco Use Types Packs/Day Years Used Date Smoking Tobacco: Former Cigarettes Smokeless Tobacco: Never Alcohol Use Standard Drinks/Week Comments Yes 0 (1 standard drink = 0.6 oz pur e alcohol) rare Interpersonal Safety Answer Date Record ed Physical Abuse 10/25/2024 Verbal Abuse 10/25/2024 Sex and Gender Information Value Date Recorded Sex Assigned at Not on file Legal Sex Male 10:29 AM EST Gender Identity Not on file Sexual Orientation Not on file documented as of this encounter Progress Notes * Sherri Greer - 11/04/2024 8:56 AM EST Pt called to obtain test results from scope done on 10/25/24. documented in this encounter Plan of Treatment Not on file documented as of this encounter Visit Diagnoses Not on filedocumented in this encounter Care Teams Shadowgraph Operator Relationship Specialty Start Date End Date Olga Leach MD [address] [place] [phone] PCP - General 04/25/24 documented as of this encounter
--- OUTSIDE RECORDS SUMMARY | 2024-12-27 10:42 | XMS_ITS | Data Portability ---
Author Organization [place] - [facility], Allergy Address [address] [address] Care Team Providers Care Cpr Ambulance Driver Name Role Phone [facility] Primary Care Provi graciela Assessment Encounter Date [...] Organization Details Last Modified Time Details Appointments Telehealt h 2024 04:15P M JOCELYNN BOYKIN MD Not available Not available Not available [...] Time Hypertrop hy of nasal turbinate s [id number] Active 2019 Hypertrop hy of nasal turbinate s; Note: Date Diagnosed : 07/22/2020 6:53 PM (J34.3) Not Available [facility] 4 02:23:02 Obstructi ve sleep apnea syndrome 05487956 Active 2019 Obstructi ve sleep apnea (adult) (pediatri c); Note: Date Diagnosed : 07/22/2020 6:53 PM (G47.33) Not Available [facility] 4 02:22:23 Chronic daily headache 16833037943 4102 Active 2023 JOCELYNN BOYKIN MD [address] [place] [address],[place] [address], [place], [phone] , [facility] 4 15:25:20 Problem Notes None recorded. Procedures Surgical History Date Name Laterality Status Provider Name and Address Organization Details Recorded Time 12/25/2024 Dise eval medical registrar do brth flx dx completed JOCELYNN BOYKIN MD [address] [place] [address], [place], [phone], [facility] 12/25/2024 08:10:32 08/27/2024 FOL_DP completed JOCELYNN BOYKIN MD [address] [place] [address], [place], [phone], [facility] 08/27/2024 09:58:34 Imaging Results None recorded. Procedure [...] bromide 21 mcg (0.03 %) nasal spray [place] 2 spray into both nostrils three times a day 08/27 completed Medicati on ID: [id number] D uration Value: 30 Prescri bed By Name: Naila Clark nd Name: ipratrop ium bromide Send Method: [...] Updated DateTime 08/27/2024 175.26 cm 25 kg/m2 61782.11 g Soumya Ramirez [place] - [facility] 08/27/2024 14:55:11 Social History None recorded. Functional Status None recorded. Mental Status None recorded. Family History Nothing Reported. Medical History No medical history recorded. Past Encounters Encounter ID Performer Location Encounter Start Date Encounter Closed Date Diagnosis/Indication Diagnosis SNOMED-CT Code Diagnosis ICD10 Code Diagnosis Note [id number] JOCELYNN BOYKIN MD [facility] [address] [place] [address] 08/27/2024 14:36:10 08/27/2024 15:23:46 Obstructive sleep apnea syndrome 54358464 G47.33 Discussed my concern with patient that the inspire device will be stimulatin g and nerve and we are not fully understand ing the cause of his headaches as he pursues nerve blocking medication treatments . Possibilit y of the inspire can make it worse will be reviewed with his neurologis t at his next appointmen t. Sleep study center at [facility] for eventual activation Body mass index 25-29 - overweight 476780381 Z68.26 Chronic da phyllis headache 1141529984 23566 R51.9 Health Concerns Section Related Observation LastModified by Organization Detai ls LastModified Time None Recorded Concern Status LastModified by Organization Details LastModified Time None Recorded Advance Directives Directive None Recorded Payers Encounter Date Sequence Insurance Name Policy Number Policy Brown Covered Member ID Brown Member ID Guarantor Name 08/27/2024 1 [place] [id number] Bria Paulino [id number] Rios Paulino Notes Date Note Type Note Provider Name and Address Organization Details Recorded Time 08/27/2024 text/html 04/09/2021 home P SG at [facility] 26AHI 20Central and mixed events none recordedCPAP trial can tolerate but does not use it often due to discomfort from straps sx of headache for past 16 monthsworking with neurologist and eye specialistgetting nerve yecenia shots to scalp and side of head (different than botox) hx of nasal trauma in , had a septoplasty to help him breath better in .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 PV 06/11/21 Travis, MICHEAL offered DISE JOCELYNN BOYKIN MD 100 [facility],[place] [address], [place], [address], [facility] - [facility] 08/27/2024 15:25:36
== END 2024-12-27 10:20 | disposition home or self-care (01) ==
PROVIDERS: Visit Provider Internal Medicine
DX: M54.81 Occipital neuralgia (principal)
CPT/HCPCS: 99214

== ENCOUNTER → 2024-12-27 09:49 | Outpatient (BNVA) | payer BC, SELFPAY | PROVIDERS: Visit Provider Internal Medicine ==

== ENCOUNTER 2025-02-13 06:25 | Outpatient (REF) | payer BC, SELFPAY ==
--- OUTSIDE RECORDS SUMMARY | 2025-02-13 06:28 | XMS_ITS | Clinical Summary ---
Author Organization [facility] [address] [facility] Address [address] [place] [phone] Phone Care Team Providers Care Milieu Technician Name Role Phone Unavailable Primary Care Provider Unavailabl e Encounters Date Type Department Care Team Description 01/01/2025 Telephone Neurology at 800 [facility] [address] [place] [address] Jus Nelson MD Appointment from Last 3 Months Immunizations Name Administration Dates Next Due Influenza, split virus, trivalent, Preservative Free 08/02/2024 Social History Tobacco Use Types Packs/Day Years Used Date Smoking Tobacco: Never Assessed Sex and Gender Information Value Date Recorded Sex Assigned at Not on file Legal Sex Male 1:23 PM EST Gender Identity Not on file Sexual Orientation Not on file Plan of Treatment Upcoming Encounters Date Type Department Care Team (Late st Contact Info) Description 03/25/2025 1:00 PM EDT Office Visit Neurology at [address] [address] Sarah Olson MD [address] [place] [address] [place] [address] Health Maintenance Due Date Last Done Comments HIV screening 1974 Hepatitis C screening 1979 Lipid disorder screening 2001 Colon cancer screening, Colonoscopy 2006 Diabetes screening 2006 Pneumococcal Vaccine (50+ years) (2 of 2 - PCV) 12/20/2019 12/20/2018 RSV Immunization (1 - Risk 60-74 years 1-dose series) 2021 Covid-19 vaccine series (2 - 2023- season) 2024 01/13/2021 Influenza vaccine 06/30/2025 08/02/2024, , 08/28/2023, Additional history exists Tetanus adult (Td q 10,TDAP once) 01/31/2029 01/31/2019, 04/05/2011, 04/28/2002 Pneumococcal Vaccine (2 - 49 years) Discontinued 12/20/2018 Shingles vaccine (Shingrix) Completed 01/2022, 05/27/2022, 12/20/2021 Meningococcal Vaccine Aged Out No jose curt eligible based on patient's age to complete this topic Insurance [facility] Member Subscriber Plan / Payer (Ef fective 2023-Present) Name:Rios Paulino Relation to Subscriber:Spouse Name:JANNETTEBRIA A Date of :1962 Payer ID:[id number] (NAIC) Type:Not on file Address: [place] [phone]
--- OUTSIDE RECORDS SUMMARY | 2025-02-13 06:28 | XMS_ITS | Encounter Summary ---
Author Organization [facility] Address [address] [place] [address] Care Team Providers Care Border Police Name Role Phone Olga Leach MD Primary Care Provider Reason for Visit * Reason Onset Date Comments Other 01/09/2025 Med Refill 01/09/2025 Encounter Details Date Type Department Care Team (Late st Contact Info) Description 01/09/2025 Telephone Adult Medicine [facility] [address] [place] [phone] Richard Francois PA [address] [place] [address] Other; Med Refill Social History Tobacco Use Types Packs/Day Years [...] as of this encounter Progress Notes * Iveth Rosas LPN - 01/13/2025 2:11 PM EDT What is short form? * Sanjeev Snyder - 01/09/2025 4:27 PM EDT Patient came in to the office asking if Sadie Francois can prescribe him sumatriptan in the short form. Patient said if provider has any questions to contact him via [employer] message or call documented in this encounter Plan of Treatment Upcoming Encounters Date Type Department Care Team (Late st Contact Info) Description 03/11/2025 9:00 AM EDT Office Visit Adult Medicine - [place] [address] [place] [address] Chantel Ocampo PA [address] [place] [address] documented as of this encounter Visit Diagnoses Not on filedocumented in this encounter Care Teams Border Police Relationship Specialty Start Date End Date Olga Leach MD [address] [place], [place] PCP - General 04/25/24 documented as of this encounter
--- OUTSIDE RECORDS SUMMARY | 2025-02-13 06:28 | XMS_ITS | Encounter Summary ---
Author Organization [facility] Address [address] [place] [address] Care Team Providers Care Yolk Spray Drier Name Role Phone Unavailable Primary Care Provider Unavailabl e Reason for Referral * Consultation (Routine) - New Request Specialty Diagnoses / Procedures Referred By Laith power Referred To Contact Neurology Diagnoses Migraine without status migrainosus, not intractable, unspecified migraine type Referral, Self Neurology at [address] [address] Phone: tel: fax: Referral ID Status Reason Start Date Expiration Date Visits Requested Visits Authorized [id number] New Request Specialty Services Required: E-mail 4 10/14/2025 1 1 Encounter Details Date Type Department Care Team (Latest Contact Info) Description 10/14/2024 Transcribed Orders EXTERNAL REFERRAL SOURCE [address] [place] [address] Referral, Self Migraine without status migrainosus, not intractable, unspecified migraine type (Primary Dx) Social History Tobacco Use Types Packs/Day Years Used Date Smoking Tobacco: Never Assessed Sex and Gender Information Value Date Recorded Sex Assigned at Not on file Legal Sex Male 1:23 PM EST Gender Identity Not on file Sexual Orientation Not on file documented as of this encounter Plan of Treatment Upcoming Encounters Date Type Department Care Team (Late st Contact Info) Description 03/25/2025 1:00 PM EDT Office Visit Neurology at 8 [facility] [address] [place], [place] [phone] Sarah Olson MD [address] [place] [address] [address] [place] [address] Scheduled Referrals Name Type Priority Associated Diagnoses Orde r Schedule Ambulatory referral to Neurology Outpatient Referral Routine Migraine without status migrainosus, not intractable, unspecified migraine type Ordered: 10/14/2024 documented as of this encounter Visit Diagnoses Diagnosis Migraine without status migrainosus, not intractable, unspecified migraine type- Primary documented in this encounter
--- OUTSIDE RECORDS SUMMARY | 2025-02-13 06:28 | XMS_ITS | Encounter Summary ---
Author Organization [facility] Address [address] [place] [phone] Care Team Providers Care Manager Domestic Name Role Phone Unavailable Primary Care Provider Unavailabl e Reason for Visit * Reason Onset Date Comments Appointment 01/01/2025 Encounter Details Date Type Department Care Team ([facility] st Contact Info) Description 01/01/2025 Telephone [facility] at [address] [address] Jus Nelson MD [address] [place] [phone] Appointment Social History Tobacco Use Types Packs/Day Years Used Date Smoking Tobacco: Never Assessed Sex and Gender Information Value Date Recorded Sex Assigned at Not on file Legal Sex Male 1:23 PM EST Gender Identity Not on file Sexual Orientation Not on file documented as of this encounter Miscellaneous Notes * Telephone Encounter - Isamar Persaud - 01/15/2025 11:41 AM EDT Unable to reach patient * Telephone Encounter - Isamar Persaud - 01/09/2025 11:57 AM EDT Copied from [facility] #[id number]. Topic: Scheduling - Schedule Appointment >> Jan 09, 2025 11:57 AM Isamar Whitehead wrote: Placing outbound call to JORDAN PAULINO to schedule an appointment. 2x called lvm Pod:Neurology * Telephone Encounter - Linda Asif - 01/01/2025 6:19 PM EST ----- Message from Jus Nelson MD sent at 01/01/2025 10:31 AM EST ----- Regarding: earlier New I have openings 01/13-, Concha and Kimberly. He can see me one of those days instead of waiting untilMay LVM 1x to reschedule ALVINO Olson appt with dr Nelson from 01/13-01/15 if openings still available. documented in this encounter Plan of Treatment Upcoming Encounters Date Type Department Care Team (Late st Contact Info) Description 03/25/2025 1:00 PM EDT Office Visit Neurology at [address] [place] [address] Sarah Olson MD [address] [place] [address] [place] [address] documented as of this encounter Visit Diagnoses Not on filedocumented in this encounter
--- OUTSIDE RECORDS SUMMARY | 2025-02-13 06:29 | XMS_ITS | Clinical Summary ---
Author Organization [facility] [address] [facility] l[address] Address [address] [place] [address] Phone Care Team Providers Care Tableau Administrator Name Role Phone Olga Leach MD Primary Care Provider Allergies No known active allergies Medications ondansetron (ZOFRAN) 4 mg tablet Take 1-2 Tablets by mouth every 8 hours as needed for Nausea. 4 Active topiramate (TOPAMAX) 25 mg tablet Take 3 Tablets by mouth 2 times daily. 4 Active SUMAtriptan (IMITREX) 100 mg tablet Take 1 Tablet by mouth. 3 Active cholecalciferol (VITAMIN D-3) 50 mcg (2,000 unit) tablet Take 1 Tablet by mouth daily. OTC. 4 Active calcium carbonate (CALCIUM 600 ORAL) Take 1 tablet by mouth 1 (one) time each day. 4 Active magnesium oxide 400 mg magnesium capsule TAKE 1 CAPSULE BY MOUTH AT BEDTIME 3 Active riboflavin (VITAMIN B2) 400 mg tablet Take 1 tablet (400 mg total) by mouth 1 (one) time each day in the morning. 3 Active MULTIVITAMIN ORAL Take by mouth. Activ e UNABLE TO FIND Take 1 capsule by mouth 1 (one) time each day. Fish Oil-Cholecalcife rol (Fish Oil + D3) 1774-5053 MG-UNIT Cap 3 Active fish oil (OMEGA-3) 60-90-500 mg capsule Take 2 capsules (1,000 mg total) by mouth 1 (one) time each day. 4 10/01/20 25 Active cyanocobalamin (VITAMIN B-12) 1,000 mcg tablet Take 5 tablets (5,000 mcg total) by mouth 1 (one) time each day. 4 Active venlafaxine (EFFEXOR) 37.5 mg tablet Take 1 tablet (37.5 mg total) by mouth 2 (two) times a day. Active methylPREDNISol one acetate (DEPO-Medrol) 40 mg/mL injection Inject 1 mL (40 mg total) under the skin. 4 Active sucralfate (CARAFATE) 1 gram tabletIndicatio ns:Epigastric pain Take 1 tablet (1 g total) by mouth 3 (three) times a day. Separate from other medications by at least 2 hours. 90 each 1 4 10/04/20 25 Active semaglutide (Ozempic) 0.25 mg or 0.5 mg (2 mg/3 mL) injection pen INJECT 0.25MG UNDER THE SKIN ONCE WEEKLY 4 Active metFORMIN XR (GLUCOPHAGE-XR) 500 mg 24 hr tablet TAKE 2 TABLETS BY MOUTH TWICE DAILY 360 tablet 1 5 Active pantoprazole (PROTONIX) 40 mg EC tablet TAKE 1 TABLET(40 MG) BY MOUTH DAILY BEFORE BREAKFAST. DO NOT CRUSH, CHEW, OR SPLIT 90 tablet 1 5 Active Active Problems Problem Noted Date Diagnosed Date Uncontrolled type 2 diabetes mellitus with hyperglycemia (CMS/HCC V24, CMS/HCC V28) 06/18/2024 Anxiety 06/13/2023 Abnormal EKG 05/22/2023 Chronic migraine w/o aura w/ o status migrainosus, not intractable 05/22/2023 Sinus tachycardia 05/19/2023 Memory impairment 05/19/2020 Overview (08/15/2024): 04/2020 Dr Martinez - recommends CPAP. [facility] providing machine. MICHEAL (obstructive sleep apnea) 04/20/2020 Overview (08/15/2024): [facility] Home Study Date 04/09/2020; Wt 180#; BMI 27; AHI 21; average oxygen saturation 95% (lowest 86%). 07/05/2020 to 08/03/2020. CPAP@ 6-16/Average 12/Max 13.3. 100% compliant with using the machine for >4 hours/day. Average use is 5 hours a night with AHI 2.0. 01/12/2021 to 02/10/2021. CPAP@ 6-16Average 11.4/Max 12.6. 97% compliant with using the machine for >4 hours/day. Average use is 5 hours a night with AHI 1.0. 11/13/2021 to 02/10/2022. CPAP@ 6-16/Average 11.2/Max 12.3. 90% compliant with using the machine for >4 hours/day. Average use is 5 hours a night with AHI 0.8. Last Assessment & Plan: [facility] Home Study Date 04/09/2020; Wt 180#; BMI 27; AHI 21; average oxygen saturation 95% (lowest 86%). 07/05/2020 to 08/03/2020. CPAP@ 6-16/Average 12/Max 13.3. 100% compliant with using the machine for >4 hours/day. Average use is 5 hours a night with AHI 2.0. 01/12/2021 to 02/10/2021. CPAP@ 6-16Average 11.4/Max 12.6. 97% compliant with using the machine for >4 hours/day. Average use is 5 hours a night with AHI 1.0. 11/13/2021 to 02/10/2022. CPAP@ 6-16/Average 11.2/Max 12.3. 90% compliant with using the machine for >4 hours/day. Average use is 5 hours a night with AHI 0.8. Doing excellent on the CPAP for usage and control. Jordan will be following up with ENT about the Inspire Device - a procedure would be first then they would determine his candidacy. With consideration of continued cost of CPAP/supplies compared to procedure by ENT and BMI <32, insurance may cover. [employer] website and avaialble resources to check out. Asked to let me the outcome and have ENT send me notes. Hemorrhoids 03/22/2019 Facial numbness 09/04/2018 Type II diabetes mellitus, w ell controlled (CMS/HCC V24, [facility] V28) 07/05/2018 Abdominal pain, epigastric 04/29/2011 Overview (08/15/2024): Normal EGD on 04/29/2011. Non-ulcer dyspepsia most likely. EGD 10/12 grossly normal. Bx pending IBS (irritable bowel syndrome) 03/13/2009 Overview (08/15/2024): Dyspepsia and AM diarrhear 02/07----EGD neg, CT/ultrasound neg Bentyl not effective. Fatty liver 01/28/2009 Overview (08/15/2024): By CT 01/05 Hemorrhage of gastrointestinal tract 06/19/2008 Overview (08/15/2024): Chronic small-volume rectal bleeding. Negative colonoscopy 01/28/2002. IMO update Chest pain, unspecified 08/19/2006 Overview (08/15/2024): Stress mibi normal 01/30, EF 66% Regular ETT neg 07/05 ER 05/05--ekg, trop, cxr neg Mibi neg 12/09 Pain in limb 08/01/2006 Overview (08/15/2024): bilateral 06/04--stress test neg Backache 04/04/2006 Overview (08/15/2024): IMO update Cervicalgia 04/04/2006 Overview (08/15/2024): MRI C-spine 10/03--Left broad based C5-6 disc herniation--?Left C6 radiculopathy diony 11/04--myofacial pain, no radiculopathy Chronic intractable headache 04/04/2006 Overview (08/15/2024): Long standing, extensive eval, triggered by stress Danielle 1998, Umlele 1999, luther 2002Rupali 12/05 Multiple meds:Corgard, Esgic, Fiornal, Elavil,Inderal LA, Limbitrol,Indocin, Immitrex, Valium, Verapamil, Reglan,Medrol, migrinaol, phergan, Tylenol #3, Percocet CT normal 1992, 1997, MRI normal Encounters Date Type Department Care Team Description 02/05/2025 Telephone [facility] - [address] [facility] [address] [place] [address] Funmilayo Pearson, ALVINO Results (CTA RESULTS ) 01/09/2025 Telephone Adult Medicine - [place] [address] [place] [address] Richard Frnacois PA Other; Med Refill from Last 3 Months Immunizations Name Administration Dates Next Due H1N1 Inj Preservative Free 11/26/2009 Influenza Quadravalent, MDCK , 0.5ml, preservative free (Flucelvax) 6mo and older 06/25/2024,09/03/2022 Influenza Quadravalent, MDCK , 0.5ml, with preservative (Flucelvax) 6mo and older 08/01/2020,08/06/2018,07/17/2017 Influenza Quadrivalent, 0.5m l, preservative free (Fluarix; FluLaval; Fluzone) ages 6mo and older (Afluria) 3yo and older 08/15/2023,08/01/2020,08/06/2018 Influenza trivalent, 0.5mL ( Fluad) 65yo and older 07/27/2016 Influenza trivalent, 0.5mL, preservative free (Fluarix; FluLaval; Fluzone) ages 6mo and older (Afluria) 3 years and older 08/02/2024 Influenza trivalent, with pr eservative (Fluzone; Afluria) 6mo and older 07/18/2021,07/27/2016,09/07/2015,08/20 Influenza, Unspecified 08/02/2024,08/28/2023 Pfizer SARS-CoV-2 COVID-19, mRNA, LNP-S, preservative free 01/13/2021 Pneumococcal polysaccharide 23 valent (Pneumovax 23) 2yo and older 12/20/2018 Td Tetanus diptheria (Tdvax) 7yo and older 04/28/2002,04/28/2002 Td, Unspecified 04/28/2002 Tdap Tetanus diptheria acell ular pertussis (Boostrix; Adacel) 7yo and older 01/31/2019,04/05/2011 Zoster recombinant (Shingrix ) 19yo and older 08/02/2022,05/27/2022,12/20/2021 Surgical History Surgery Date Site/Laterality Comments COLONOSCOPY 01/28/2002 PROCEDURE: CT COLONOSCOPY FLX DX W/COLLJ SPEC WHEN PFRMD; COMMENT: Negative COLONOSCOPY W/ POLYPECTOMY 08/06/2008 PROCEDURE: CT COLSC FLX W/RMVL OF TUMOR POLYP LESION SNARE TQ; COMMENT: 6 mm cecal polyp: Tubular adenoma ESOPHAGOGASTRODUODENOSCOPY 04/29/2011 PROCEDURE: CT ESOPHAGOGASTRODUODENOSCOPY TRANSORAL DIAGNOSTIC; COMMENT: Normal COLONOSCOPY 11/29/2012 PROCEDURE: CT COLONOSCOPY FLX DX W/COLLJ SPEC WHEN PFRMD; COMMENT: no polyps Medical History Medical History Date Comments Backache, unspecified 04/04/2006 DX:Backach e, unspecified Headache(784.0) 04/04/2006 DX:Headache(784. 0) Cervicalgia 04/04/2006 DX:Cervicalgia Hemorrhage of gastrointestin al tract, unspecified 06/19/2008 DX:Hemorrhage of gastrointes tinal tract, unspecified; COMMENT: Chronic small-volume rectal bleeding. Negative colonoscopy 01/28/2002. Diverticulosis of colon (wit hout mention of hemorrhage) 08/06/2008 DX:Diverticulosis of colon ( without mention of hemorrhage); COMMENT: Incidental finding at colonoscopy 08/06/2008. 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; COMMENT: 6-mm polyp removed from the cecum at colonoscopy 08/06/2008: Special screening for malign ant neoplasms, colon 08/06/2008 DX:Special screening for mal ignant neoplasms, colon; COMMENT: Colonoscopy 08/06/08--diverticulosis, 6mm polyp cecum-- Tubular adenoma Abdominal pain, epigastric 04/29/2011 DX:Ab dominal pain, epigastric Headache Irritable bowel syndrome GERD (gastroesophageal reflux disease) Sleep apnea Family History Medical History Relation Name Comments Diabetes Brother Dementia Father Diabetes Father Other: skin cancer Mother Relation Name Status Comments Brother Alive Father Maternal Grandfather Maternal Grandmother Mother (Age 81) Paternal Grandfather Paternal Grandmother Social History Tobacco Use Types Packs/Day Years Used Date Smoking Tobacco: Former Cigarettes Smokeless Tobacco: Never Tobacco Cessation:Counseling Given: Not Answered Alcohol Use Standard Drinks/Week Comments Yes 0 (1 standard drink = 0.6 oz pur e alcohol) rare Interpersonal Safety Answer Date Record ed Physical Abuse 10/25/2024 Verbal Abuse 10/25/2024 Sex and Gender Information Value Date Recorded Sex Assigned at Not on file Legal Sex Male 10:29 AM EST Gender Identity Not on file Sexual Orientation Not on file Obstetrics History Last Filed Vital Signs Vital Sign Reading Time Taken Comments Blood Pressure 118/82 10/25/2024 9:00 AM EST Pulse 72 10/25/2024 9:00 AM EST Temperature 36.2 ??C (97.2 ??F) 10/25/2024 8:40 AM ES T Respiratory Rate 18 10/25/2024 9:00 AM EST Oxygen Saturation 100% 10/25/2024 9:00 AM EST Inhaled Oxygen Concentration - - Weight 72.1 kg (159 lb) 10/25/2024 8:10 AM EST Height 175.3 cm (5' 9 ) 10/25/2024 8:10 AM EST Body Mass Index 23.48 10/25/2024 8:10 AM EST Plan of Treatment Upcoming Encounters Date Type Department Care Team (Late st Contact Info) Description 03/11/2025 9:00 AM EDT Office Visit Adult Medicine - [place] [address] [place] [address] Chantel Ocampo PA [address] [place] [address] Health Maintenance Due Date Last Done Comments Diabetes: Annual Retina Eye Exam 1971 Pneumococcal Vaccine: 50+ Years (2 of 2 - PCV) 12/20/2019 12/20/2018 Pneumococcal Vaccine: Pediatrics (0 to 5 Years) and At-Risk Patients (6 to 64 Years) (2 of 2 - PCV) 12/20/2019 12/20/2018 RSV Immunization Adult Patients (1 - Risk 60-74 years 1-dose series) 2021 Depression Screening 10/08/2022 Social Influencers of Health Screening 10/08/2022 Diabetes: Annual Urine Albumin-Creatinine Ratio (uACR) 06/12/2024 06/12/2023 COVID-19 Vaccine ( season) 2024 05/27/2022, 10/15/2021, 02/03/2021, Additional history exists Diabetes: Annual Foot Exam 09/14/2024 09/14/2023 Diabetes: Blood Sugar Control Test (HGBA1C) 02/10/2025 08/12/2024, 08/12/2024, 05/21/2024 Diabetes: Annual GFR (Glomerular Filtration Rate) 01/09/2026 01/09/2025, 11/20/2024, 08/12/2024, Additional history exists DTaP,Tdap,and Td Vaccines (6 - Td or Tdap) 01/31/2029 01/31/2019, 04/05/2011, 04/28/2002, Additional history exists Cholesterol Screening (Lipid Panel) 05/21/2029 05/21/2024, 05/21/2024 Colorectal Cancer Screening: Colonoscopy 05/17/2032 05/17/2022 HIV Screening Completed 04/19/2004 Hepatitis C Screening Completed 05/24/2017 Zoster Vaccines Completed 08/02/2022, 04/30, 12/20/2021 Influenza Vaccine Completed 08/02/2024, , 06/25/2024, Additional history exists HIB Vaccines Aged Out No longer eligi ble based on patient's age to complete this topic HPV Vaccines Aged Out No longer eligi ble based on patient's age to complete this topic Hepatitis A Vaccines Aged Out No long er eligible based on patient's age to complete this topic Hepatitis B Vaccines Aged Out No long er eligible based on patient's age to complete this topic IPV Vaccines Aged Out No longer eligi ble based on patient's age to complete this topic MMR Vaccines Aged Out No longer eligi ble based on patient's age to complete this topic Meningococcal ACWY Vaccine Aged Out N o longer eligible based on patient's age to complete this topic Meningococcal B Vaccine Aged Out No l onger eligible based on patient's age to complete this topic RSV Immunization Patients Under 20 months Aged Out No longer eligible based on patient's age to complete this topic Varicella Vaccines Aged Out No longer eligible based on patient's age to complete this topic Procedures Procedure Name Priority Date/Time Associated Diagnosis Comments BASIC METABOLIC PANEL Routine 01/09/2025 4:35 PM EDT Other chest pain Abnormal EKG BASIC METABOLIC PANEL STAT 11/20/2024 4:06 PM EST Other chest pain Nonspecific abnormal electrocardiogram (ECG) (EKG) HEMOGLOBIN A1C Routine 08/12/2024 LIPID PANEL Routine 05/21/2024 DIABETES FOOT EXAM Routine 09/14/2023 URINE ALBUMIN CREATININE RATIO Routine 06/12/2023 COLONOSCOPY Routine 05/17/2022 HEPATITIS C SCREENING Routine 05/24/2017 HIV SCREENING Routine 04/19/2004 from Last 3 Months or Most Recently Relevant to Health Maintenance Results * Basic metabolic panel (01/09/2025 4:35 PM EDT) Only the most recent of2 resultswithin the time period is included. Sodium 141 133 - 145 mmol/L LAB CHEMISTRY METHOD 01/09/2025 6:10 PM [facility] Potassium 3.9 3.5 - 5.5 mmol/L LAB CHEMISTRY METHOD 01/09/2025 6:10 PM EDT [facility] Chloride 108 96 - 110 mmol/L LAB CHEMISTRY METHOD 01/09/2025 6:10 PM [facility] CO2 28 21 - 32 mmol/L LAB CHEMISTRY METHOD 01/09/2025 6:10 PM EDT [facility] Anion Gap 5 3 - 11 LAB CHEMISTRY METHOD 01/09/2025 6:10 PM EDT [facility] Glucose 83 70 - 100 mg/dL LAB CHEMISTRY METHOD 01/09/2025 6:10 PM EDT [facility] BUN 20 5 - 25 mg/dL LAB CHEMISTRY METHOD 01/09/2025 6:10 PM EDT [facility] Creatinine 1.02 0.70 - 1.30 mg/dL LAB CHEMISTRY METHOD 01/09/2025 6:10 PM EDT [facility] eGFR 83 >=60 mL/min/1. 73m2 LAB CHEMISTRY METHOD 01/09/2025 6:10 PM EDT [facility] Comment:Calculation based on the??Chronic Kidney Disease Epidemiology Collaboration (CKD-EPI) equation refit??without adjustment for race. BUN/Creatinine Ratio 19.6 LAB CHEMISTRY METHOD 01/09/2025 6:10 PM EDT [facility] Calcium 10.2 8.5 - 10.5 mg/dL LAB CHEMISTRY METHOD 01/09/2025 6:10 PM EDT [facility] Blood Venous blood specimen / Unknown Venipuncture / Unknown 01/09/2025 4:35 PM EDT 01/09/2025 4:35 PM EDT Funmilayo Pearson NP LAB BLOOD ORDERABLES Final Result [facility] [address] [place] [address], * Hemoglobin A1c (08/12/2024) Hemoglobin A1C 5.9 <=6.5 % Blood Venous blood specimen / Unknown Historical Provider LAB BLOOD ORDERABLES Jackie l Result * (ABNORMAL) Lipid panel (05/21/2024) LDL/HDL Ratio 5(A) 0 - 4 Triglycerides 319(A) 0 - 150 mg/dL Cholesterol 182 0 - 200 mg/dL HDL 39(A) >=40 mg/dL LDL Cholesterol 80 0 - 100 mg/dL Blood Venous blood specimen / Unknown Result [facility] Provider LAB BLOOD ORDERABLES Jackie l Result * Diabetes Foot Exam (09/14/2023) [facility] Diabetes: Annual Foot Exam abstracted Result [facility] Provider HEALTH MAINTENANCE Final Result * Urine Albumin Creatinine Ratio (06/12/2023) [facility] Urine Albumin Creatinine Ratio abstracted Result [facility] Provider HEALTH MAINTENANCE Final Result * Colonoscopy (05/17/2022) [facility] Colonoscopy abstracted, no interpretation Anatomical Region Laterality Modality Other Result [facility] Provider HEALTH MAINTENANCE Final Result * Hepatitis C Screening (05/24/2017) [facility] Hepatitis C Screening abstracted [facility] Provider HEALTH MAINTENANCE Final Result * HIV Screening (04/19/2004) [facility] HIV Screening abstracted Result [facility] Provider HEALTH MAINTENANCE Final Result from Last 3 Months or Most Recently Relevant to Health Maintenance Insurance [facility] Care Teams Tableau Administrator Relationship Specialty Start Date End Date Olga Leach MD [address] [place] [address] [id number] PCP - General 04/25/24
--- OUTSIDE RECORDS SUMMARY | 2025-02-13 06:29 | XMS_ITS | Data Portability ---
Author Organization [place] - [facility], Allergy Address [address] [facility] [address] [place] [address] Care Team Providers Care Instructor Tap Dancing Name Role Phone [facility] Primary Care Provi graciela Assessment Encounter Date [...] the procedure. 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 His most recent sleep study was a home study through [facility] in 2020. He has lost significant weight and has maintained his weight loss. Could consider repeating sleep study. He has found the CPAP straps around his head and neck were very disturbing for his headaches. Recently his headaches have had better control with Sprint electrodes. Discussed the possibility of uvulopalatophary ngoplasty, did not strongly recommended at this time as he will update his sleep study in the setting of weight loss. [email or web address] Not available 01/02/2025 16:19:58 Plan of Treatment Reminders Order Date Submit Date Provider Last Modified By Organization Details Last Modified Time Details Appointments None recorded. Lab None recorded. Referral None recorded. Procedures polysomno graphy (PROC) - please repeat PSG in setting of weight loss. most recent 03/2021 Home PSG AHI 20. DISE exam not an INSPIRE candidate 2024 025 [facility], [address] [facility], [place], [address], 5 10:27:23 drug-carmencita nelda sleep endoscopy (SURG) 2023 024 NEIL Not available 5 11:01:21 Surgeries None recorded. Imaging None recorded. Medication Orders None recorded. Patient TargetsNo targets recorded. Patient InstructionsNo instructions recorded. Reason for Referral None Reported. Problems Name Problem SNOMED Code Status Onset Date Resolution Date Notes Provider Name and Address Organization Details Recorded Time Hypertrop hy of nasal turbinate s 33248425 Active 2019 Hypertrop hy of nasal turbinate s; Note: Date Diagnosed : 07/22/2020 6:53 PM (J34.3) Not Available [facility] 4 02:23:02 Obstructi ve sleep apnea syndrome 31321812 Active 2019 Obstructi ve sleep apnea (adult) (pediatri c); Note: Date Diagnosed : 07/22/2020 6:53 PM (G47.33) Not Available [facility] 4 02:22:23 Chronic daily headache 08019300600 4102 Active 2023 JOCELYNN BOYKIN MD [address] [facility],[place] [address], [place], [address] , [facility] - [facility] 4 15:25:20 Problem Notes None recorded. 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 Procedure [...] Not Available Not Available No t Available sucralfat e 1 gram tablet active Not Available Not Available Not Available ondansetr on HCl 4 mg tablet [...] completed Not Available Not Available Not Available pantopraz ole 40 mg tablet,de layed release active Not Available Not Available Not Available dexametha sone 4 mg tablet active Not Available Not Available Not Available gabapenti n 300 mg capsule TAKE 1 TO 2 CAPSULES BY MOUTH THREE TIMES DAILY NEEDED FOR SEVERE PAIN active Not Available Not Available No t Available lorazepam 1 mg tablet TAKE 1 TABLET BY MOUTH AT BEDTIME NEEDED FOR ANXIETY active Not Available Not Available No t [...] bromide 21 mcg (0.03 %) nasal spray [place] 2 spray into both nostrils three times a day 08/27 completed Medicati on ID: [id number] D uration Value: 30 Prescri bed By Name: Naila [place] nd Name: ipratrop ium bromide Send Method: E-Prescr ibed Sub s Allowed: subs OK Medic ationGen ericName : ipratrop ium bromide Not Available Not Available Not Available topiramat e 50 mg tablet TAKE 2 TABLETS BY MOUTH TWICE A DAY active Not Available Not Available No t Available duloxetin e 30 mg capsule,d elayed [...] completed Not Available Not Available Not Available oxycodone 10 mg tablet TAKE 1 TABLET BY MOUTH TWICE DAILY NEEDED FOR PAIN active Not Available Not Available No t Available magnesium 400 mg (as magnesium oxide) capsule TAKE 1 CAPSULE BY MOUTH AT BEDTIME 08/27 completed Not Available Not Available Not Available Farxiga 10 mg tablet TAKE 1 TABLET BY MOUTH DAILY active Not Available Not Available No t Available riboflavi n (vitamin B2) 400 mg tablet TAKE 1 TABLET BY MOUTH EVERY MORNING active Not Available Not Available No t Available Ajovy 225 mg/1.5 mL subcutane ous auto-inje ctor ADMINIST ER 1.5 ML UNDER THE SKIN EVERY 28 DAYS active Not Available Not Available No [...] Updated DateTime 08/27/2024 175.26 cm 25 kg/m2 23447.11 g Soumya Ramirez [place] - [facility] 08/27/2024 14:55:11 Social History None recorded. Functional Status None recorded. Mental Status None recorded. Family History Nothing Reported. Medical History No medical history recorded. Past Encounters Encounter ID Performer Location Encounter Start Date Encounter Closed Date Diagnosis/Indication Diagnosis SNOMED-CT Code Diagnosis ICD10 Code Diagnosis Note [id number] JOCELYNN BOYKIN MD [facility] [address] [address] 08/27/2024 14:36:10 08/27/2024 15:23:46 Obstructive sleep apnea syndrome 02968295 G47.33 Discussed my concern with patient that the inspire device will be stimulatin g and nerve and we are not fully understand ing the cause of his headaches as he pursues nerve blocking medication treatments . Possibilit y of the inspire can make it worse will be reviewed with his neurologis t at his next appointmen t. Sleep study center at [facility] for eventual activation Body mass index 25-29 - overweight 501459159 Z68.26 Chronic da phyllis headache 9342653360 02923 R51.9 [id number] JOCELYNN BOYKIN MD [facility] [address] [place] [address] 01/02/2025 16:07:12 01/02/2025 17:05:37 Obstructive sleep apnea syndrome 37784689 G47.33 Health Concerns Section Related Observation LastModified by Organization Detai ls LastModified Time None Recorded Concern Status LastModified by Organization Details LastModified Time None Recorded Advance Directives Directive None Recorded Payers Encounter Date Sequence Insurance Name Policy Number Policy Brown Covered Member ID Brown Member ID Guarantor Name 08/27/2024 1 [place] [id number] Bria Paulino [id number] Rios Paulino 01/02/2025 1 [place] [id number] Bria A Lora [id number] Rios Paulino Notes Date Note Type Note Provider Name and Address Organization Details Recorded Time 08/27/2024 text/html 04/09/2021 home P [facility] at [address] [address] and mixed events none recordedCPAP trial [...] Travis, MICHEAL offered DISE JOCELYNN BOYKIN MD [address] [place] [address], [address], [facility] - [facility] 08/27/2024 15:25:36 01/02/2025 text/html 04/09/2021 home P SG at [address] 20[place] and mixed events none recordedCPAP trial can tolerate but does not use it often due to discomfort from straps lost 22 pounds from modifying eating and use of ozempic sx of headache for past 16 monthsworking with neurologist and eye specialistgetting nerve yecenia electrode (SPRINT) to scalp and side of head for 2 monthsstimulator device has been helpful for headaches and he is considering a more permanent implant hx of nasal trauma in , had a septoplasty to help him breath better in .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 12/25/24 [facility], DISE - complete concentric collapse, not INSPIRE candidate JOCELYNN BOYKIN MD [address] [place] [address], [place], [address], [place] - [facility] 01/02/2025 16:21:07
== END 2025-02-13 06:26 | disposition home or self-care (01) ==
LOC: CF 06:25
PROVIDERS: Visit Provider Internal Medicine
DX: M54.81 Occipital neuralgia (principal)
CPT/HCPCS: 64555; C1778; J2003

== ENCOUNTER 2025-02-13 13:08 | Outpatient (AMB) | payer BC, SELFPAY ==
[2025-02-13 13:17] VITALS: BP 121/73; PULSE 98; RESP 16; O2SAT 96
--- NOTE | 2025-02-13 13:17 | MHC.OFFVIS ---
Vital Signs 02/13/25 13:17 02/13/25 14:04 BP 121/73 121/73 Blood Pressure Location Lt brachial Lt brachial Position Sitting Sitting Respiration 16 16 Pulse 98 78 Pulse Source Pulse Oximeter Pulse Oximeter Pulse Oximetry (%) 96 98 Oxygen Delivery Method Room Air Room Air Intake Visit Reasons: Left occipital Sprint Allergies No Known Allergies Allergy (Verified 12/27/24 10:00) HPI HPI Left occipital Sprint: Details: Patient presents for scheduled procedure. Denies any recent cough, cold, infection, fever or other significant changes in medical history since last office visit. [facility] Medical History Anxiety Irritable bowel syndrome Chronic migraine without aura MICHEAL on CPAP Headache Diabetes Family History Father Dementia Diabetes History of heart attack Mother Stomach cancer Social History Alcohol intake: current Alcohol intake frequency: does not drink Patient Tobacco Use Status: Former Tobacco user Physical Exam Vital Signs: Last Vital Signs Pulse 78 02/13/25 14:04 Resp 16 02/13/25 14:04 BP 121/73 02/13/25 14:04 Pulse Ox 98 02/13/25 14:04 Oxygen Delivery Method Room Air 02/13/25 14:04 Office Procedures Details: Occipital Nerve Stimulation Lead Placement, SPR (Sprint) System, Left, ultrasound-guided ? After the risks, benefits and alternatives were discussed with the patient and informed consent was obtained, patient was placed in the prone position and padded to foster comfort. The skin overlying the cervical spine was prepped and draped in sterile fashion. Ultrasound was used to identify the C2 spinous process and lamina. After identifying the occipital artery and nerve, the skin around the planned entry point and the subcutaneous tissues were injected with lidocaine 1%. An introducer needle and stimulating probe were assembled, inserted and advanced under ultrasound guidance. The introducer needle was delivered to a location in proximity to the left occipital nerve. Multiple stimulation parameters were used to deliver stimulation to the occipital nerve in concert with stimulating at multiple positions around the nerve. Nerve target acquisition was confirmed noting generation of paresthesias in the high cervical and occipital regions corresponding to the nerve being stimulated. Various electrical parameter combinations were tested, and the lead location was adjusted (physically relocated) until the patient indicated paresthesia/muscle tension overlapping the occipital region. The stimulating probe was removed from the introducer and a percutaneous lead was guided through the needle and delivered to a location in similar proximity to the nerve. Final location was verified with electrical stimulation and documented with ultrasound. The introducer needle was removed, and the exposed end of the percutaneous lead was attached to an external stimulator unit. Various electrical parameter combinations were again tested until the patient indicated paresthesia or muscle tension in the left occipital region. After confirming that lead impedance was in the normal range, the external unit was detached, the needle was removed, and the lead was anchored at the skin. The lead was threaded into the connector block and electrical continuity and desired patient response was confirmed. The connector block was attached to the external stimulator unit. The site was covered with a sterile occlusive pressure dressing. Sprint PNS Device: Sprint PNS Device [id number] Percutaneous Peripheral Neuroelectrode Procedure: 29899 - Percutaneous Peripheral Neuroelectrode Procedure code (CPT) selection complete Office Meds lidocaine HCl 10 mg/mL (1 %) injection solution Performing Provider: Octavio Cervantes MD Performing Location: [facility] Administered by: Octavio Cervantes MD on 02/13/25 14:01 Dose Route Admin Location Dispensed Lot Number Expiration Date FORMERLY NAMED [facility] Practice Or Student Teacher 5 mL subcut 5 mL Assessment & Plan Assessment & Plan (1) Occipital neuralgia: Code(s): M54.81 - Occipital neuralgia Category: Medical Qualifiers: Laterality: bilateral Qualified Code(s): M54.81 - Occipital neuralgia Plan Patient is status post left temporary occipital nerve stimulator placement. Patient tolerated procedure well and was discharged home in stable condition with discharge instructions. All questions were answered. We will follow-up via telephone or in clinic to assess response to therapy. A follow-up appointment was made during today's visit. Orders: Orders FL guidance in treatment room 02/13/25 Liz Longo APRN, [employer] FRENCH TEACHER M54.81 - Occipital neuralgia AMB Sprint PNS 02/13/25 Octavio Cervantes MD M54.81 - Occipital neuralgia Coding Level of Care Code Procedure Only Diagnoses Bilateral occipital neuralgia M54.81 Laterality: bilateral CPT Codes Sprint PNS - Sprint PNS Device: Sprint PNS Device ([id number]) Sprint PNS - SPRINT: [id number] - Percutaneous Peripheral Neuroelectrode ([id number])
[2025-02-13 14:04] VITALS: BP 121/73; PULSE 78; RESP 16; O2SAT 98
--- OUTSIDE RECORDS SUMMARY | 2025-02-13 16:07 | XMS_ITS | Clinical Summary ---
Author Organization [facility] [address] [facility] lding Address [address] [place] [address] Phone Care Team Providers Care Aviation Electrician Name Role Phone Olga Leach MD Primary [...] Fish Oil-Cholecalcife rol (Fish Oil + D3) 4210-2197 MG-UNIT Cap 3 Active fish oil (OMEGA-3) [...] (08/15/2024): 04/2020 Dr Martinez - recommends CPAP. [facility] providing machine. MICHEAL (obstructive sleep apnea) 04/20/2020 Overview (08/15/2024): [facility] Home Study Date 04/09/2020; Wt 180#; BMI [...] with AHI 0.8. Last Assessment & Plan: [facility] Home Study Date 04/09/2020; Wt 180#; BMI [...] ENT and BMI <32, insurance may cover. Netradaussed inspiresleepAviacode website and avaialble resources to check out. Asked to let me the outcome and have ENT send me notes. Hemorrhoids 03/22/2019 Facial numbness 09/04/2018 Type II diabetes mellitus, w ell controlled (CMS/HCC V24, [facility] V28) 07/05/2018 Abdominal pain, epigastric [...] Type Department Care Team Description 02/05/2025 Telephone [facility] [address] [facility] [address] [place] [address] Funmilayo Pearson, ALVINO Results (CTA RESULTS ) 01/09/2025 Telephone Adult Medicine - [place] [address] [place] [address] Richard Francois PA Other; Med Refill from Last 3 [...] Surgery Date Site/Laterality Comments COLONOSCOPY 01/28/2002 PROCEDURE: HI COLONOSCOPY FLX DX W/COLLJ SPEC WHEN PFRMD; COMMENT: Negative COLONOSCOPY W/ POLYPECTOMY 08/06/2008 PROCEDURE: HI COLSC FLX W/RMVL OF TUMOR POLYP LESION SNARE TQ; COMMENT: 6 mm cecal polyp: Tubular adenoma ESOPHAGOGASTRODUODENOSCOPY 04/29/2011 PROCEDURE: HI ESOPHAGOGASTRODUODENOSCOPY TRANSORAL DIAGNOSTIC; COMMENT: Normal COLONOSCOPY 11/29/2012 PROCEDURE: HI COLONOSCOPY FLX DX W/COLLJ SPEC WHEN PFRMD; [...] AM EDT Office Visit Adult Medicine - [place] [address] [place] [address] Chantel Ocampo PA [address] [place] [address] Health Maintenance Due Date Last Done Comments [...] mmol/L LAB CHEMISTRY METHOD 01/09/2025 6:10 PM [facility] Potassium 3.9 3.5 - 5.5 mmol/L LAB CHEMISTRY METHOD 01/09/2025 6:10 PM EDT [facility] Chloride 108 96 - 110 mmol/L LAB CHEMISTRY METHOD 01/09/2025 6:10 PM [facility] CO2 28 21 - 32 mmol/L LAB CHEMISTRY METHOD 01/09/2025 6:10 PM EDT [facility] Anion Gap 5 3 - 11 LAB CHEMISTRY METHOD 01/09/2025 6:10 PM EDT [facility] Glucose 83 70 - 100 mg/dL LAB CHEMISTRY METHOD 01/09/2025 6:10 PM EDT [facility] BUN 20 5 - 25 mg/dL LAB CHEMISTRY METHOD 01/09/2025 6:10 PM EDT [facility] Creatinine 1.02 0.70 - 1.30 mg/dL LAB CHEMISTRY METHOD 01/09/2025 6:10 PM EDT [facility] eGFR 83 >=60 mL/min/1. 73m2 LAB CHEMISTRY METHOD 01/09/2025 6:10 PM EDT [facility] Comment:Calculation based on the??Chronic Kidney Disease Epidemiology Collaboration (CKD-EPI) equation refit??without adjustment for race. BUN/Creatinine Ratio 19.6 LAB CHEMISTRY METHOD 01/09/2025 6:10 PM EDT [facility] Calcium 10.2 8.5 - 10.5 mg/dL LAB CHEMISTRY METHOD 01/09/2025 6:10 PM EDT [facility] Blood Venous blood specimen / Unknown Venipuncture / Unknown 01/09/2025 4:35 PM EDT 01/09/2025 4:35 PM EDT Funmilayo Pearson NP LAB BLOOD ORDERABLES Final Result [facility] [address] [place] [address], * Hemoglobin A1c (08/12/2024) Hemoglobin A1C 5.9 [...] Blood Venous blood specimen / Unknown Result [facility] Provider LAB BLOOD ORDERABLES Jackie l Result * Diabetes Foot Exam (09/14/2023) [facility] Diabetes: Annual Foot Exam abstracted Result [facility] Provider HEALTH MAINTENANCE Final Result * Urine Albumin Creatinine Ratio (06/12/2023) [facility] Urine Albumin Creatinine Ratio abstracted Result [facility] Provider HEALTH MAINTENANCE Final Result * Colonoscopy (05/17/2022) [facility] Colonoscopy abstracted, no interpretation Anatomical Region Laterality Modality Other Result [facility] Provider HEALTH MAINTENANCE Final Result * Hepatitis C Screening (05/24/2017) [facility] Hepatitis C Screening abstracted [facility] Provider HEALTH MAINTENANCE Final Result * HIV Screening (04/19/2004) [facility] HIV Screening abstracted Result [facility] Provider HEALTH MAINTENANCE Final Result from Last 3 Months or Most Recently Relevant to Health Maintenance Insurance [facility] Care Teams Aviation Electrician Relationship Specialty Start Date End Date Olga Leach MD [address] [place] [phone] PCP - General 04/25/24
--- OUTSIDE RECORDS SUMMARY | 2025-02-13 16:07 | XMS_ITS | Clinical Summary ---
Author Organization [facility] [address] [facility] Address [address] [place] [phone] Phone Care Team Providers Care Academic Support Director Name Role Phone Unavailable Primary Care Provider Unavailabl e Encounters Date Type Department Care Team Description 01/01/2025 Telephone Neurology at [address] [facility] [address] [place] [address] Jus Nelson MD Appointment from Last 3 [...] PM EDT Office Visit Neurology at [address] [address] Sarah Olson MD [address] [place] [address] [place] [address] Health Maintenance Due Date Last [...] patient's age to complete this topic Insurance [facility] Member Subscriber Plan / Payer (Ef fective 2023-Present) Name:Rios Paulino Relation to Subscriber:Spouse Name:JANNETTEBRIA A Date of :1962 Payer ID:[id number] (NAIC) Type:Not on file Address: [place] [phone]
--- OUTSIDE RECORDS SUMMARY | 2025-02-13 16:07 | XMS_ITS | Encounter Summary ---
Author Organization [facility] Address [address] [place] [address] Care Team Providers Care Analyst Food And Beverage Name Role Phone Unavailable Primary Care Provider Unavailabl e Reason for Referral * Consultation (Routine) - New Request Specialty Diagnoses / Procedures Referred By Laith power Referred To Contact Neurology Diagnoses Migraine without status migrainosus, not intractable, unspecified migraine type Referral, Self Neurology at [address] [address] Phone: tel: fax: Referral ID Status Reason Start Date Expiration Date Visits Requested Visits Authorized [id number] New Request Specialty Services Required: E-mail 4 10/14/2025 1 1 Encounter Details Date Type Department Care Team (Latest Contact Info) Description 10/14/2024 Transcribed Orders EXTERNAL REFERRAL SOURCE [address] [place] [phone] Referral, Self Migraine without status migrainosus, not [...] PM EDT Office Visit Neurology at 8 [facility] 8 [place], [place] [phone] Sarah Olson MD [address] [place] [address] [address] [place] [address] Scheduled Referrals Name Type Priority Associated Diagnoses Orde r Schedule Ambulatory referral to Neurology Outpatient Referral Routine Migraine without status migrainosus, not intractable, unspecified migraine type Ordered: 10/14/2024 documented as of this encounter Visit Diagnoses Diagnosis Migraine without status migrainosus, not intractable, unspecified migraine type- Primary documented in this encounter
--- OUTSIDE RECORDS SUMMARY | 2025-02-13 16:07 | XMS_ITS | Encounter Summary ---
Author Organization [facility] Address [address] [place] [phone] Care Team Providers Care Feeder Tender Name Role Phone Unavailable Primary Care Provider Unavailabl e Reason for Visit * Reason Onset Date Comments Appointment 01/01/2025 Encounter Details Date Type Department Care Team ([facility] st Contact Info) Description 01/01/2025 Telephone [facility] at [address] [address] Jus Nelson MD [address] [place] [phone] Appointment Social History Tobacco Use Types Packs/Day [...] - 01/09/2025 11:57 AM EDT Copied from [facility] #[id number]. Topic: Scheduling - Schedule Appointment >> Jan [...] 1:00 PM EDT Office Visit Neurology at [address] [place] [address] Sarah Olson MD [address] [place] [address] documented as of this encounter Visit Diagnoses Not on filedocumented in this encounter
--- OUTSIDE RECORDS SUMMARY | 2025-02-13 16:07 | XMS_ITS | Encounter Summary ---
Author Organization [facility] Address [address] [place] [address] Care Team Providers Care Cartography Teacher Name Role Phone Olga Leach MD Primary Care Provider Reason for Visit * Reason Onset Date Comments Other 01/09/2025 Med Refill 01/09/2025 Encounter Details Date Type Department Care Team (Late st Contact Info) Description 01/09/2025 Telephone Adult Medicine [facility] [address] [place] [address] Richard Francois PA [address] [place] [address] Other; Med Refill Social History Tobacco Use [...] has any questions to contact him via Managed Objects message or call documented in this encounter Plan of Treatment Upcoming Encounters Date Type Department Care Team (Late st Contact Info) Description 03/11/2025 9:00 AM EDT Office Visit Adult Medicine - [place] [address] [place] [address] Chantel Ocampo PA [address] [place] [address] documented as of this encounter Visit Diagnoses Not on filedocumented in this encounter Care Teams Cartography Teacher Relationship Specialty Start Date End Date Olga Leach MD [address] [place], [place] PCP - General 04/25/24 documented as of this encounter
== END 2025-02-13 14:09 | disposition home or self-care (01) ==
LOC: HO.PMCPRC 13:08
PROVIDERS: Visit Provider Internal Medicine
DX: M54.81 Occipital neuralgia (principal)
CPT/HCPCS: 64555